=== PATIENT | male | born 1940 ===

== ENCOUNTER 2017-05-14 13:44 | Emergency (ER) | payer MEDICARE, SELFPAY ==
[2017-05-14 13:52] VITALS: RESP 20
[2017-05-14] MEDS ORDERED: Sodium Chloride 0.9% 1,000 ML IV STA (14:17)
[2017-05-14] MEDS ORDERED: Sodium Chloride 0.9% 1,000 ML ONE (14:26)
[2017-05-14 14:32] LABS: BASO # 0.1 K/uL (0.0-0.2); BASO % 1.3 % (0.0-2.0); EOS # 0.1 K/uL (0.0-0.7); EOS % 1.4 % (0.0-4.0); HEMATOCRIT 41.5 % (35.0-51.0); LYMPH # 0.9 K/uL (1.0-4.3); LYMPH % 8.8 % (20.0-40.0); MEAN CELL VOLUME 91.9 fL (80.0-94.0); MEAN CORPUSCULAR HEMOGLOBIN 31.2 pg (27.0-31.0); MEAN CORPUSCULAR HGB CONC 33.9 g/dL (33.0-37.0); MONO # 0.8 K/uL (0.0-0.8); MONO % 7.9 % (0.0-10.0); PLATELET COUNT 189 K/uL (130-400); RED CELL DISTRIBUTION WIDTH 14.6 % (11.5-14.5); WHITE BLOOD COUNT 10.6 K/uL (4.8-10.8)
--- NOTE | 2017-05-14 14:33 | C.PDOC ---
History Of Present Illness 77-year-old male, PMHx includes Hypertension, presents to the emergency department with complaints of an episode of dizziness, one hour ago while patient was waiting for a bus. Patient describes the episode as "feeling hot." States episode resolved, and he feels well currently. Denies nausea/vomiting, chest pain, palpitations, shortness of breath, fevers, headache, change in bowel habits, symptoms, or any other associated symptoms. No other complaints at this time PMD Dr Alejo. Time Seen by Provider: 05/14/17 14:06 Chief Complaint (Nursing): Dizziness/Lightheaded History Per: Patient History/Exam Limitations: no limitations Onset/Duration Of Symptoms: Other (Prior to arrival) Current Symptoms Are (Timing): Better Past Medical History Reviewed: Historical Data, Nursing Documentation, Vital Signs Vital Signs: Last Vital Signs Temp 97.2 F L 05/14/17 13:46 Pulse 68 05/14/17 13:46 Resp 20 05/14/17 13:46 BP 108/62 05/14/17 13:46 Pulse Ox 98 05/14/17 15:00 - Medical History PMH: COPD, HTN, Hypercholesterolemia, Kidney Stones, Chronic Kidney Disease - [facility] Procedures ULTRASONOGRAPHY OF PERICARDIUM (08/29/15) Family History: States: No Known Family Hx Other Family History: Non-contributory - Social History Hx Tobacco Use: Yes Hx Alcohol Use: No Hx Substance Use: No - Immunization History Hx Tetanus Toxoid Vaccination: No Hx Influenza Vaccination: No Hx Pneumococcal Vaccination: No Review Of Systems Except As Marked, All Systems Reviewed And Found Negative. Constitutional: Negative for: Fever, Chills Cardiovascular: Negative for: Chest Pain, Palpitations Respiratory: Negative for: Shortness of Breath Gastrointestinal: Negative for: Nausea, Vomiting, Abdominal Pain, Diarrhea Musculoskeletal: Negative for: Back Pain Neurological: Positive for: Dizziness. Negative for: Weakness, Numbness, Change in Speech, Headache Physical Exam - Physical Exam Additional Physical Exam Comments: Constitutional: No acute distress. Head: Normocephalic. Atraumatic. Eyes: PERRL. ENT: Moist mucous membranes. Neck: Supple. Cardiovascular: Regular rate. Radial pulses 2+ bilaterally. Chest: No tenderness. Respiratory: Clear to auscultation bilaterally. GI: Soft. Nontender. Nondistended. Back: No CVA tenderness. Musculoskeletal: No tenderness or swelling of extremities. Skin: No rashes. Neurologic: Alert, no focal deficit. ED Course And Treatment - Laboratory Results Result Diagrams: 05/14/17 14:26 05/14/17 14:26 ECG: Interpreted By Me, Viewed By Me ECG Rhythm: Sinus Rhythm ECG Interpretation: No Acute Changes Rate From EC O2 Sat by Pulse Oximetry: 98 (on RA) - Radiology CXR: Interpreted by Me, Viewed By Me CXR Interpretation: Yes: No Acute Disease Medical Decision Making Medical Decision Making: Orthostatic vital signs negative. Patient feels well and would not like to stay in the hospital although he was offered observation stay. I discussed case with PMRosio Alejo who states he can see patient in office Wednesday morning. Instructed to return to the ER immediately for any recurrent symptoms, pain, fever, dyspnea, bleeding/black stool, vomiting, or any other problem. Disposition - Disposition Referrals: Carmelo Alejo MD [Medical Doctor] - Disposition: HOME/ ROUTINE Disposition Time: 15:12 Condition: STABLE Instructions: Lightheadedness (ED) - Clinical Impression Clinical Impression: Lightheadedness - Scribe Statement The provider has reviewed the documentation as recorded by the Scribe (Serena Keller) All medical record entries made by the Scribe were at my direction and personally dictated by me. I have reviewed the chart and agree that the record accurately reflects my personal performance of the history, physical exam, medical decision making, and the department course for this patient. I have also personally directed, reviewed, and agree with the discharge instructions and disposition.
[2017-05-14 14:47] LABS: CHLORIDE 109 mmol/L (98-107)
[2017-05-14 14:48] LABS: POTASSIUM 3.6 mmol/L (3.6-5.2); SODIUM 140 mmol/L (132-148)
[2017-05-14 14:50] LABS: AST/SGOT 25 U/L (17-59); BILIRUBIN,TOTAL 0.6 mg/dL (0.2-1.3); CARBON DIOXIDE 22 mmol/L (22-30); GFR AFRICAN-AMERICAN > 60
[2017-05-14 14:51] LABS: ALB/GLOB RATIO 1.4 (1.0-2.1); ALKALINE PHOSPHATASE 59 U/L (38-126); ALT/SGPT 20 U/L (21-72); BLOOD UREA NITROGEN 29 mg/dL (9-20); CALCIUM 8.8 mg/dl (8.6-10.4); GLUCOSE,RANDOM 101 mg/dL (75-110); TOTAL PROTEIN 6.1 g/dL (6.3-8.3)
--- NOTE | 2017-05-14 14:51 | RAD ---
HISTORY: lightheadedness COMPARISON: 08/28/2015. FINDINGS: LUNGS: The lungs are well inflated and clear. PLEURA: No significant pleural effusion identified, no pneumothorax apparent. CARDIOVASCULAR: Normal. OSSEOUS STRUCTURES: No significant abnormalities. VISUALIZED UPPER ABDOMEN: Normal. OTHER FINDINGS: None. IMPRESSION: No active pulmonary disease.
[2017-05-14 15:10] LABS: EOSINOPHIL 4 % (0-4); NEUTROPHIL 82 % (50-75); TOTAL CELLS COUNTED 100
[2017-05-14 16:12] VITALS: BP 137/69; PULSE 69; TEMP 97.6; O2SAT 99
== END 2017-05-14 16:13 | disposition home or self-care (01) ==
LOC: C.ER 13:44
DX: R42 Dizziness and giddiness (principal)
CPT/HCPCS: 71010; 80053; 82550; 84484; 85025; 96360; 96361; 99285; J7040

== ENCOUNTER 2017-10-23 18:14 | Emergency (ER) | payer MEDICARE ==
--- NOTE | 2017-10-23 19:18 | C.PDOC ---
History Of Present Illness 77 year old male with a Hx of HTN and hyperlipidemia presents to the ER with a complaint of lower abdominal pain that began this morning. Patient states he took aspirin which resolved his symptoms, denies fever or other complaints. Time Seen by Provider: 10/23/17 19:04 Chief Complaint (Nursing): Abdominal Pain History Per: Patient History/Exam Limitations: no limitations Onset/Duration Of Symptoms: Hrs Current Symptoms Are (Timing): Still Present Location Of Pain/Discomfort: RUQ, LUQ Radiation Of Pain To:: None Quality Of Discomfort: Unable To Describe Associated Symptoms: denies: Fever, Chills, Nausea, Vomiting, Diarrhea Exacerbating Factors: None Alleviating Factors: None Recent travel outside of the [place]: No Past Medical History Reviewed: Historical Data, Nursing Documentation, Vital Signs Vital Signs: Last Vital Signs Temp 98.4 F 10/23/17 19:52 Pulse 64 10/23/17 19:52 Resp 16 10/23/17 19:52 BP 146/60 10/23/17 19:52 Pulse Ox 98 10/23/17 19:52 - Medical History PMH: COPD, HTN, Hypercholesterolemia, Kidney Stones, Chronic Kidney Disease Surgical History: No Surg Hx - [facility] Procedures ULTRASONOGRAPHY OF PERICARDIUM (08/29/15) Family History: States: Unknown Family Hx - Social History Hx Tobacco Use: Yes Hx Alcohol Use: No Hx Substance Use: No - Immunization History Hx Tetanus Toxoid Vaccination: No Hx Influenza Vaccination: No Hx Pneumococcal Vaccination: No Review Of Systems Constitutional: Negative for: Fever, Chills Gastrointestinal: Positive for: Abdominal Pain. Negative for: Nausea, Vomiting Physical Exam - Physical Exam Appears: Non-toxic, No Acute Distress Skin: Normal Color, Warm, Dry Head: Atraumatic, Normacephalic Eye(s): bilateral: Normal Inspection Oral Mucosa: Moist Neck: Normal, Supple Chest: Symmetrical Cardiovascular: Rhythm Regular Respiratory: Normal Breath Sounds, No Rales, No Rhonchi, No Wheezing Gastrointestinal/Abdominal: Soft, No Tenderness Neurological/Psych: Oriented x3, Normal Speech, Other (No focal deficits) ED Course And Treatment - Laboratory Results Result Diagrams: 10/23/17 19:14 10/23/17 19:14 Pulse Ox Interpretation: Normal Progress Note: Blood work and urinalysis ordered. Medical Decision Making Medical Decision Making: resolved abdominal pain - labs pending 740: pt reassessed: states all pain completely resolved in er. pt amenable to waiting for ua, but declines any futher imaging, and states "i want to go home" . 830: pt reassesed: abd soft nottp. pt states "he feels great". wishess to leave er. Disposition - Disposition Referrals: Soy Troncoso MD [Staff Provider] - Disposition: HOME/ ROUTINE Disposition Time: 19:38 Condition: STABLE Additional Instructions: please follow up with your doctor and specialist. return to er with worsening symptoms or concerns. Instructions: Acute Abdominal Pain (ED) Forms: [employer] (Bur[place]ian) - Clinical Impression Clinical Impression: Abdominal pain - Scribe Statement The provider has reviewed the documentation as recorded by the Scribe Juan Jose Castro All medical record entries made by the Scribe were at my direction and personally dictated by me. I have reviewed the chart and agree that the record accurately reflects my personal performance of the history, physical exam, medical decision making, and the department course for this patient. I have also personally directed, reviewed, and agree with the discharge instructions and disposition.
[2017-10-23 19:19] LABS: BASO # 0.1 K/uL (0.0-0.2); BASO % 1.1 % (0.0-2.0); EOS # 0.2 K/uL (0.0-0.7); EOS % 3.1 % (0.0-4.0); HEMATOCRIT 42.9 % (35.0-51.0); LYMPH # 1.7 K/uL (1.0-4.3); LYMPH % 23.2 % (20.0-40.0); MEAN CELL VOLUME 91.9 fL (80.0-94.0); MEAN CORPUSCULAR HEMOGLOBIN 30.5 pg (27.0-31.0); MEAN CORPUSCULAR HGB CONC 33.2 g/dL (33.0-37.0); MEAN PLATELET VOLUME 9.4 fL (7.2-11.7); MONO # 0.6 K/uL (0.0-0.8); MONO % 8.8 % (0.0-10.0); NRBC % 0.1 % (0.0-2.0); RED CELL DISTRIBUTION WIDTH 14.4 % (11.5-14.5); WHITE BLOOD COUNT 7.4 K/uL (4.8-10.8)
[2017-10-23 19:27] LABS: INR 0.9
[2017-10-23 19:35] LABS: BLOOD UREA NITROGEN 24 mg/dL (9-20); CALCIUM 8.5 mg/dl (8.6-10.4); CARBON DIOXIDE 26 mmol/L (22-30); CHLORIDE 103 mmol/L (98-107); GFR AFRICAN-AMERICAN > 60; GLUCOSE,RANDOM 90 mg/dL (75-110); POTASSIUM 3.4 mmol/L (3.6-5.2); SODIUM 137 mmol/L (132-148); TOTAL PROTEIN 7.2 g/dL (6.3-8.3)
[2017-10-23 19:36] LABS: ALB/GLOB RATIO 1.1 (1.0-2.1); ALKALINE PHOSPHATASE 82 U/L (38-126); ALT/SGPT 36 U/L (21-72); AST/SGOT 28 U/L (17-59); BILIRUBIN,TOTAL 0.6 mg/dL (0.2-1.3)
[2017-10-23] MEDS ORDERED: Potassium Chloride 20 mEq ER Tab PO STA (19:40)
[2017-10-23 20:03] VITALS: BP 146/60; PULSE 64; RESP 16; TEMP 98.4; O2SAT 98
[2017-10-23] MEDS ORDERED: Potassium Chloride 20 mEq ER Tab PO ONE ×2 (20:07→20:08)
[2017-10-23 20:17] LABS: RBC URINE 7 /hpf (0-3); URINE BILIRUBIN NEGATIVE (NEGATIVE); URINE BLOOD 2+ (NEGATIVE); URINE COLOR Straw (YELLOW); URINE GLUCOSE (UA) NORMAL (Normal); URINE KETONE NEGATIVE (NEGATIVE); URINE LEUKOCYTE ESTERASE NEG Leu/uL (Negative); URINE PROTEIN NEGATIVE (NEGATIVE); URINE UROBILINOGEN NORMAL mg/dL (0.2-1.0); WBC URINE 1 /hpf (0-5)
== END 2017-10-23 20:36 | disposition home or self-care (01) ==
LOC: C.ER 18:14
DX: R10.9 Unspecified abdominal pain (principal); I12.9 Hypertensive chronic kidney disease with stage 1 through stage 4 chronic kidney disease, or unspecified chronic kidney disease; N18.9 Chronic kidney disease, unspecified; F17.210 Nicotine dependence, cigarettes, uncomplicated

== ENCOUNTER 2018-03-21 08:56 | Inpatient (IN) | payer MEDICARE ==
[2018-03-21] MEDS ORDERED: Azithromycin 500 MG in Sodium Chloride 0.9% 250 ML IVPB STA (09:19)
[2018-03-21] MEDS ORDERED: Albuterol-Ipratrop 3 mg / 0.5 (3 ml) UD INH STA ×2 (09:19→09:58)
[2018-03-21] MEDS ORDERED: Albuterol-Ipratrop 3 mg / 0.5 (3 ml) UD ONE ×2 (09:32→10:46)
[2018-03-21 09:37] LABS: BASO # 0.1 K/uL (0.0-0.2); BASO % 0.3 % (0.0-2.0); HEMOGLOBIN 14.2 g/dL (12.0-18.0); LYMPH # 0.4 K/uL (1.0-4.3); LYMPH % 2.4 % (20.0-40.0); MEAN CELL VOLUME 90.8 fL (80.0-94.0); MEAN CORPUSCULAR HGB CONC 34.1 g/dL (33.0-37.0); MEAN PLATELET VOLUME 9.3 fL (7.2-11.7); MONO # 1.8 K/uL (0.0-0.8); MONO % 10.6 % (0.0-10.0); NEUT # 14.7 K/uL (1.8-7.0); NEUT % 86.7 % (50.0-75.0); PLATELET COUNT 299 K/uL (130-400); RBC 4.58 Mil/uL (4.40-5.90); RED CELL DISTRIBUTION WIDTH 13.7 % (11.5-14.5); WHITE BLOOD COUNT 16.9 K/uL (4.8-10.8)
--- NOTE | 2018-03-21 09:47 | RAD ---
Chest x-ray single frontal view History: Shortness of breath. Comparison: 05/14/2017 Findings: Biapical pleural thickening with upper lobe granulomatous changes. Diffuse increased interstitial lung markings which may represent underlying edema and or infiltrate. Right hilar prominence. Bibasilar breast and nipple shadows. Mild cardiomegaly. Degenerative changes in the spine and shoulders. Impression: Biapical pleural thickening with upper lobe granulomatous changes. Diffuse increased interstitial lung markings which may represent underlying edema and or infiltrate. Right hilar prominence. Bibasilar breast and nipple shadows. Mild cardiomegaly.
[2018-03-21 09:50] LABS: ALB/GLOB RATIO 0.9 (1.0-2.1); ALBUMIN 3.5 g/dL (3.5-5.0); ALT/SGPT 38 U/L (21-72); AST/SGOT 46 U/L (17-59); BLOOD UREA NITROGEN 33 mg/dL (9-20); GFR AFRICAN-AMERICAN > 60; GFR NON-AFRICAN AMERICAN > 60
[2018-03-21 09:55] LABS: B-TYPE NATRIURETIC PEPTIDE 3160 pg/mL (0-900)
--- NOTE | 2018-03-21 10:03 | C.PDOC ---
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 Patient is not on any home O2. Denies vomiting, fever. All other Hx limited because patient is a poor historian. Time Seen by Provider: 03/21/18 09:08 Chief Complaint (Nursing): Shortness Of Breath History Per: Family History/Exam Limitations: clinical condition Onset/Duration Of Symptoms: Days Current Symptoms Are (Timing): Still Present Past Medical History Reviewed: Historical Data, Nursing Documentation, Vital Signs Vital Signs: Last Vital Signs Temp 97.8 F 03/21/18 15:00 Pulse 98 H 03/21/18 16:32 Resp 20 03/21/18 15:00 BP 166/82 H 03/21/18 15:00 Pulse Ox 95 03/21/18 15:00 - Medical History PMH: COPD, HTN, Hypercholesterolemia, Kidney Stones, Chronic Kidney Disease - [facility] Procedures ULTRASONOGRAPHY OF PERICARDIUM (08/29/15) Family History: States: No Known Family Hx - Social History Hx Tobacco Use: Yes Hx Alcohol Use: No Hx Substance Use: No - Immunization History Hx Tetanus Toxoid Vaccination: No Hx Influenza Vaccination: No Hx Pneumococcal Vaccination: No Review Of Systems Review Of Systems: ROS cannot be obtained secondary to pt's inabilty to answer questions. Constitutional: Negative for: Fever Respiratory: Positive for: Cough, Shortness of Breath Gastrointestinal: Negative for: Vomiting Physical Exam - Physical Exam Appears: Non-toxic, In Acute Distress Skin: Normal Color, Warm, Dry, No Rash Head: Normacephalic Eye(s): bilateral: PERRL Nose: Normal Oral Mucosa: Moist Lips: Normal Appearing Neck: Normal ROM Chest: Symmetrical Cardiovascular: Rhythm Regular, No Murmur Respiratory: No Accessory Muscle Use, Other (diminished bs bilaterally ) Gastrointestinal/Abdominal: Normal Exam, Bowel Sounds, Soft Back: Normal Inspection Extremity: Normal ROM, No Deformity, No Swelling Neurological/Psych: Oriented x3, Normal Speech ED Course And Treatment - Laboratory Results Result Diagrams: 03/21/18 09:26 03/21/18 09:26 ECG: Interpreted By Me, Viewed By Me ECG Rhythm: Sinus Rhythm ECG Interpretation: No Acute Changes Interpretation Of ECG: PAC, left axis deviation. non-specific changes Rate From EC O2 Sat by Pulse Oximetry: 83 (RA) Pulse Ox Interpretation: Abnormal Critical Care Time - Critical Care Note Total Time (in mins): 40 Documented critical care: time excludes all time spent performing seperately billable procedures. Medical Decision Making Medical Decision Making: Plan: * EKG * Bloodwork * Duonebs, Lasix, Rocephin, Solumedrol, Azithro * Blood/Urine cultures * bipap, peak flow * UA * Reassess and Disposition Disposition Discussed With : Joe Soria Counseled Patient/Family Regarding: Studies Performed, Diagnosis - Disposition Disposition: HOSPITALIZED Disposition Time: 10:03 Condition: FAIR - Clinical Impression Clinical Impression: Chr obstructive pulmonary disease w/ acute lower respiratory infxn - Scribe Statement The provider has reviewed the documentation as recorded by the Scribe (Serena Joseph) All medical record entries made by the Scribe were at my direction and personally dictated by me. I have reviewed the chart and agree that the record accurately reflects my personal performance of the history, physical exam, medical decision making, and the department course for this patient. I have also personally directed, reviewed, and agree with the discharge instructions and disposition.
[2018-03-21 10:54] LABS: SQUAMOUS EPITHIAL < 1 /hpf (0-5); URINE AMORPHOUS SEDIMENT FEW /ul (<OCC); URINE BILIRUBIN NEGATIVE (NEGATIVE); URINE BLOOD 3+ (NEGATIVE); URINE CLARITY Hazy (Clear); URINE COLOR Amber (YELLOW); URINE GLUCOSE (UA) NORMAL (Normal); URINE LEUKOCYTE ESTERASE NEG Leu/uL (Negative); URINE PROTEIN 2+ mg/dL (NEGATIVE)
[2018-03-21 10:57] LABS: BANDS 7 % (0-2); LYMPHOCYTE 4 % (20-40); MONOCYTE 2 % (0-10); NEUTROPHIL 87 % (50-75); NUCLEATED RED BLOOD CELL 1 % (0-0); TOTAL CELLS COUNTED 100
[2018-03-21 11:01] LABS: PLATELET ESTIMATE NORMAL (NORMAL)
[2018-03-21 11:02] LABS: TOXIC GRANULATION PRESENT
[2018-03-21] MEDS: Albuterol-Ipratrop 3 mg / 0.5 (3 ml) UD INH SCH ×2 (13:48→20:35)
[2018-03-21] MEDS ORDERED: Potassium Chloride 20 mEq ER Tab PO ONE (14:11)
[2018-03-21] MEDS: guaiFENesin 600 mg ER Tab PO SCH (18:01)
[2018-03-21 21:05] LABS: ARTERIAL BLOOD GAS HCO3 28.8 mmol/L (21-28); ARTERIAL BLOOD GAS HEMOGLOBIN 13.7 g/dL (11.7-17.4); ARTERIAL BLOOD GAS O2 SAT 98.6 % (95-98); ARTERIAL BLOOD GAS PCO2 47 mm/Hg (35-45); ARTERIAL BLOOD GAS PH 7.42 (7.35-7.45); ARTERIAL BLOOD GAS PO2 84 mm/Hg (80-100); ARTERIAL BLOOD GAS TCO2 31.9 mmol/L (22-28)
[2018-03-21] MEDS: MethylPREDNISolone 40 mg Vial IVP SCH (21:39)
[2018-03-21] MEDS: Rosuvastatin Calcium 2.5 mg Tab PO SCH (22:15)
--- NOTE | 2018-03-21 23:19 | CP.PCM.HP ---
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 Patient is not on any home O2. Denies vomiting, fever. All other Hx limited because patient is a poor historian. Past Patient History - Past Medical History & Family History Past Medical History?: Yes - Past Social History Smoking Status: Former Smoker - CARDIAC Hx Hypercholesterolemia: Yes Hx Hypertension: Yes - PULMONARY Hx Chronic Obstructive Pulmonary Disease (COPD): Yes - NEUROLOGICAL Hx Neurological Disorder: No - HEENT Hx HEENT Problems: No - RENAL Hx Chronic Kidney Disease: Yes Hx Kidney Stones: Yes - ENDOCRINE/METABOLIC Hx Endocrine Disorders: No - HEMATOLOGICAL/ONCOLOGICAL Hx Blood Disorders: No - INTEGUMENTARY Hx Dermatological Problems: No - MUSCULOSKELETAL/RHEUMATOLOGICAL Hx Musculoskeletal Disorders: No Hx Falls: Yes - GASTROINTESTINAL Hx Gastrointestinal Disorders: No - GENITOURINARY/GYNECOLOGICAL Hx Genitourinary Disorders: No - PSYCHIATRIC Hx Substance Use: No - SURGICAL HISTORY Hx Surgeries: No - ANESTHESIA Hx Anesthesia: No Hx Anesthesia Reactions: No (unknown) Hx Malignant Hyperthermia: No Meds Allergies/Adverse Reactions: Allergies Allergy/AdvReac Type Severity Reaction Status Date / Time No Known Allergies Allergy Verified 08/28/15 12:26 Results - Vital Signs Recent Vital Signs: Last Vital Signs Temp 97.8 F 03/21/18 15:00 Pulse 72 03/21/18 20:49 Resp 20 03/21/18 15:00 BP 114/64 03/21/18 19:19 Pulse Ox 91 L 03/21/18 20:39 - Labs Result Diagrams: 03/21/18 09:26 03/21/18 09:26 Labs: Laboratory Results - last 24 hr 03/21/18 03/21/18 03/21/18 09:11 09:26 09:26 WBC 16.9 H D RBC 4.58 Hgb 14.2 Hct 41.6 MCV 90.8 MCH 31.0 MCHC 34.1 RDW 13.7 Plt Count 299 D MPV 9.3 Neut % (Auto) 86.7 H Lymph % (Auto) 2.4 L [place] % (Auto) 10.6 H Eos % (Auto) 0.0 Baso % (Auto) 0.3 Neut # (Auto) 14.7 H Lymph # (Auto) 0.4 L [place] # (Auto) 1.8 H Eos # (Auto) 0.0 Baso # (Auto) 0.1 Neutrophils % (Manual) 87 H Band Neutrophils % 7 H Lymphocytes % (Manual) 4 L Monocytes % (Manual) 2 Nucleated RBC % 1 H Toxic Granulation Present Platelet Estimate Normal RBC Morphology Normal Puncture Site pCO2 pO2 HCO3 ABG pH ABG Total CO2 ABG O2 Saturation ABG Base Excess ABG Hemoglobin ABG Carboxyhemoglobin POC ABG HHb (Measured) ABG Methemoglobin Kodak Test A-a O2 Difference Respiratory Index Hgb O2 Saturation Vent Mode Mechanical Rate FiO2 Inspiratory BiPAP Expiratory BiPAP Sodium 143 Potassium 3.4 L Chloride 99 Carbon Dioxide 30 Anion Gap 17 BUN 33 H Creatinine 1.0 Est GFR ( Amer) > 60 Est GFR (Non-Af Amer) > 60 POC Glucose (mg/dL) 126 H Random Glucose 137 H Calcium 9.0 Total Bilirubin 1.5 H AST 46 ALT 38 Alkaline Phosphatase 104 Troponin I 0.0460 NT-Pro-B Natriuret Pep 3160 H Total Protein 7.6 Albumin 3.5 Globulin 4.1 H Albumin/Globulin Ratio 0.9 L Urine Color Urine Clarity Urine pH Ur Specific [place] Urine Protein Urine Glucose (UA) Urine Ketones Urine Blood Urine Nitrate Urine Bilirubin Urine Urobilinogen Ur Leukocyte Esterase Urine WBC (Auto) Urine RBC (Auto) Ur Squamous Epith Cells Amorphous Sediment 03/21/18 03/21/18 10:38 21:00 WBC RBC Hgb Hct MCV MCH MCHC RDW Plt Count MPV Neut % (Auto) Lymph % (Auto) [place] % (Auto) Eos % (Auto) Baso % (Auto) Neut # (Auto) Lymph # (Auto) [place] # (Auto) Eos # (Auto) Baso # (Auto) Neutrophils % (Manual) Band Neutrophils % Lymphocytes % (Manual) Monocytes % (Manual) Nucleated RBC % Toxic Granulation Platelet Estimate RBC Morphology Puncture Site Rba pCO2 47 H pO2 84 HCO3 28.8 H ABG pH 7.42 ABG Total CO2 31.9 H ABG O2 Saturation 98.6 H ABG Base Excess 5.0 H ABG Hemoglobin 13.7 ABG Carboxyhemoglobin 2.0 H POC ABG HHb (Measured) 1.4 ABG Methemoglobin 1.3 Kodak Test Na A-a O2 Difference 142.0 Respiratory Index 1.7 Hgb O2 Saturation 95.2 Vent Mode Bipap Mechanical Rate 15 FiO2 40.0 Inspiratory BiPAP 14 Expiratory BiPAP 7 Sodium Potassium Chloride Carbon Dioxide Anion Gap BUN Creatinine Est GFR ( Amer) Est GFR (Non-Af Amer) POC Glucose (mg/dL) Random Glucose Calcium Total Bilirubin AST ALT Alkaline Phosphatase Troponin I NT-Pro-B Natriuret Pep Total Protein Albumin Globulin Albumin/Globulin Ratio Urine Color Denisa Urine Clarity Hazy Urine pH 5.0 Ur Specific [place] 1.020 Urine Protein 2+ H Urine Glucose (UA) Normal Urine Ketones Negative Urine Blood 3+ H Urine Nitrate Negative Urine Bilirubin Negative Urine Urobilinogen 4.0 Ur Leukocyte Esterase Neg Urine WBC (Auto) 3 Urine RBC (Auto) 24 H Ur Squamous Epith Cells < 1 Amorphous Sediment Few H
[2018-03-22] MEDS: Albuterol-Ipratrop 3 mg / 0.5 (3 ml) UD INH SCH ×4 (01:44→20:29)
[2018-03-22 08:06] LABS: HEMOGLOBIN 13.3 g/dL (12.0-18.0); MEAN CELL VOLUME 91.4 fL (80.0-94.0); MEAN CORPUSCULAR HEMOGLOBIN 30.6 pg (27.0-31.0); MEAN CORPUSCULAR HGB CONC 33.5 g/dL (33.0-37.0); MEAN PLATELET VOLUME 9.6 fL (7.2-11.7); RBC 4.36 Mil/uL (4.40-5.90); RED CELL DISTRIBUTION WIDTH 14.1 % (11.5-14.5); WHITE BLOOD COUNT 20.1 K/uL (4.8-10.8)
[2018-03-22 08:22] LABS: BLOOD UREA NITROGEN 55 mg/dL (9-20); CALCIUM 8.9 mg/dl (8.6-10.4); GFR AFRICAN-AMERICAN > 60; GFR NON-AFRICAN AMERICAN > 60
[2018-03-22] MEDS: MethylPREDNISolone 40 mg Vial IVP SCH ×2 (09:48→21:02)
[2018-03-22] MEDS: guaiFENesin 600 mg ER Tab PO SCH ×2 (09:48→17:08)
[2018-03-22] MEDS: Enoxaparin 40 mg Syringe SC SCH (09:49)
[2018-03-22] MEDS ORDERED: Tuberculin 5 Units/0.1 ml Inj ID ONE (11:00)
[2018-03-22] MEDS: Piperacillin/Tazobact 3.375 GM in Sodium Chloride 100 ML IVPB SCH ×2 (13:03→19:02)
--- NOTE | 2018-03-22 15:41 | CT ---
PROCEDURE: CT Chest without contrast HISTORY: interstitial pnrumonitis COMPARISON: None. TECHNIQUE: Contiguous axial images were obtained through the chest without intravenous contrast enhancement. Sagittal and coronal reconstructions were performed. Radiation dose (DLP): 303.40 mGy-cm. This CT exam was performed using one or more of the following dose reduction techniques: Automated exposure control, adjustment of the mA and/or kV according to patient size, and/or use of iterative reconstruction technique. FINDINGS: LUNGS: Bilateral diffuse reticulonodular changes are identified with mild peribronchial cuffing of the major airways. Trace alveolitis is seen in the right upper and bilateral lower lobes the lower lobe atelectasis may be present rather than alveolitis. No central airway mass. The reticular pattern may obscure underlying small nodules. MEDIASTINUM: Unremarkable thoracic aorta. No aneurysm. Normal sized heart. Main pulmonary artery unremarkable. No vascular congestion. No significant lymphadenopathy. PLEURA: No pleural fluid. No pneumothorax. BONES: No fracture. No destructive lesion. UPPER ABDOMEN: Incidental right and left lobe lucencies are infrequently identified too small to characterize. Bilateral renal lucencies are identified suggestive of cysts with 1 too small to characterize at the left kidney. OTHER FINDINGS: None. IMPRESSION: Diffuse mild reticulonodular infiltrates in trace peribronchial thickening are appreciated throughout all lobes bilaterally which trace alveolitis in the right upper lobe and potentially at minimally affecting bilateral lower lobes though atelectasis is a the possibility there. No significant lymphadenopathy. No significant lymphadenopathy. Consider infectious or inflammatory process. Neoplasm not favored. Incidental abdominal findings as described above.
[2018-03-22] MEDS: Dextrose 5%/0.45% NS 1,000 ML IV SCH (18:58)
[2018-03-22] MEDS: Rosuvastatin Calcium 2.5 mg Tab PO SCH (21:02)
--- NOTE | 2018-03-22 21:57 | CARD ---
APPROVED REPORT EKG Measurement Heart [id number] [id number] <Conclusion> Sinus rhythm with premature atrial complexes Left axis deviation Abnormal ECG
[2018-03-22] MEDS: Nitroglycerin 2% Ointment Foilpak UD TOP SCH (22:17)
--- NOTE | 2018-03-22 23:33 | CP.PCM.PN ---
Subjective - Date & Time of Evaluation Date of Evaluation: 03/22/18 Time of Evaluation: 17:45 - Subjective Subjective: Pt seen and examined at bedside Objective - Vital Signs/Intake and Output Vital Signs (last 24 hours): Temp Pulse Resp BP Pulse Ox 97.5 F L 77 18 159/83 H 98 03/22/18 15:00 03/22/18 19:57 03/22/18 15:00 03/22/18 22:00 03/22/18 15:00 Intake and Output: 03/22/18 03/23/18 18:59 06:59 Intake Total 300 Balance 300 - Medications Medications: Current Medications Albuterol/Ipratropium (Duoneb 3 Mg/0.5 Mg (3 Ml) Ud) 3 ml INH RQ6 [facility] Last Admin: 03/22/18 20:29 Dose: 3 ml Enoxaparin Sodium (Lovenox) 40 mg SC DAILY [facility] Last Admin: 03/22/18 09:49 Dose: 40 mg Guaifenesin (Mucinex La) 600 mg PO BID [facility] Last Admin: 03/22/18 17:08 Dose: 600 mg Piperacillin Sod/Tazobactam (Sod 3.375 gm/ Sodium Chloride) 100 mls @ 200 mls/ hr IVPB Q8H [facility] PRN Reason: Protocol Stop: 03/29/18 04:29 Last Admin: 03/22/18 19:02 Dose: 200 mls/hr Dextrose/Sodium Chloride (Dextrose 5%/0.45% Ns 1000 Ml) 1,000 mls @ 40 mls/hr IV .Q24H [facility] Last Admin: 03/22/18 18:58 Dose: 40 mls/hr Methylprednisolone (Solu-Medrol) 20 mg IVP Q12 [facility] Last Admin: 03/22/18 21:02 Dose: 20 mg Nitroglycerin (Nitro-Bid 2% Oint) 0 ea TOP Q6H [facility] Last Admin: 03/22/18 22:17 Dose: 1 ea Rosuvastatin Calcium (Crestor) 2.5 mg PO HS [facility] Last Admin: 03/22/18 21:02 Dose: 2.5 mg - Labs Labs: 03/22/18 07:56 03/22/18 07:56
[2018-03-23] MEDS: Albuterol-Ipratrop 3 mg / 0.5 (3 ml) UD INH SCH ×3 (01:41→19:45)
[2018-03-23] MEDS: Piperacillin/Tazobact 3.375 GM in Sodium Chloride 100 ML IVPB SCH ×3 (05:02→21:00)
[2018-03-23] MEDS: Nitroglycerin 2% Ointment Foilpak UD TOP SCH ×4 (05:03→22:47)
--- NOTE | 2018-03-23 06:29 | CON ---
DATE: HISTORY OF PRESENT ILLNESS: This is a 77-year old male, an ex-smoker with history of COPD, hypercholesterolemia, renal stone, chronic renal disease,degenerative arthritis, history of falls, now admitted with cough productive of mucoid and yellowish sputum and history of shortness of breath with no chest pain and no vomiting, no fever. There is no hemoptysis. PAST HISTORY: As stated above COPD, hypertension, hypercholesterolemia, renal disease. SOCIAL HISTORY: He has been a smoker in the past for many years, but he is unable to say how many because he says he gets confused.. Does not drink alcohol. There is no history of allergy. There is no history of tuberculosis or PPD test. FAMILY HISTORY: Reported as unremarkable and there is no history of TB. REVIEW OF SYSTEMS: As reported above. NEUROLOGIC: There is no history of seizures, but has history of falls and periods of confusion. CARDIORESPIRATORY: There is history of shortness of breath with cough. GASTROINTESTINAL: Unremarkable. No vomiting. No abdominal pain. No diarrhea. His weight is steady but may have weight loss. There is no loss of appetite. RENAL: Unremarkable except for history of renal stones. MUSCULOSKELETAL: He has history of arthritis. Does not give history of . GENERAL: No history of substance abuse. PHYSICAL EXAMINATION: GENERAL: He is awake, words conversation, but he is somewhat confused. VITAL SIGNS: He is afebrile with blood pressure 146/68, pulse 66, respirations 18, hemoglobin oxygen saturation of 97%. He uses BiPAP at night. NECK: Supple. There is no lymphadenopathy. HEENT: Unremarkable. There is no thyromegaly. HEART: Regular. No gallop rhythm. LUNGS: Diminished breath sounds of the lung bases. There are some crackles bilaterally with rhonchi. ABDOMEN: Soft. EXTREMITIES: No edema. No calf muscle tenderness. Deep tendon reflexes are unremarkable. There is general motor weakness. LABORATORY DATA: Laboratory studies show white count 20,100, hemoglobin 13.3, platelet count 319,000, MCV 91, MCHC 33.5, neutrophils 87%, basos 7, lymph of 4. ABG is on 40% of FiO2, BiPAP of 14 x 7 showed pH of 7.42, pCO2 47, pO2 34, bicarb 29, hemoglobin oxygen saturation of 95%. Serum sodium 145, potassium 3.9, chloride 103, BUN 55, creatinine 1.1, glucose 173, calcium 8.9. Total bilirubin 1.5, AST 46, ALT 38, alkaline phosphatase 24, troponin 0.046, proBNP raised to 3160, albumin 3.5, globulin 4.1. Urine shows protein 2+, blood 3+, urobilinogen 4, urine leukocyte esterase negative, white count 3, urine rbc 24. Chest x-ray shows cardiomegaly. Diffuse interstitial marking reported as decreased interstitial marking which may represent underlying edema or infiltrates. with right hilar prominence with pleural thickening and upper lobe granulomatous changes. IMPRESSION: Respiratory insufficiency, history of chronic obstructive pulmonary disease, pneumonitis, interstitial lung disease, degenerative joint disease, hypertension, history of falls, history of chronic renal disorder and renal stones, hypercholesterolemia and anemia. PLAN: To continue with the current medications, I agree with current plan and recommend oxygen, bronchodilator, vasodilators, antibiotics and further testing as ordered. We will discuss. Saji Ortega MD
[2018-03-23 06:57] LABS: ALB/GLOB RATIO 0.8 (1.0-2.1); ALBUMIN 2.9 g/dL (3.5-5.0); ALT/SGPT 41 U/L (21-72); AST/SGOT 43 U/L (17-59); BLOOD UREA NITROGEN 51 mg/dL (9-20); CALCIUM 8.2 mg/dl (8.6-10.4); GFR AFRICAN-AMERICAN > 60; GFR NON-AFRICAN AMERICAN > 60
[2018-03-23] MEDS: guaiFENesin 600 mg ER Tab PO SCH ×2 (10:36→17:47)
[2018-03-23] MEDS: Enoxaparin 40 mg Syringe SC SCH (10:36)
[2018-03-23] MEDS: MethylPREDNISolone 40 mg Vial IVP SCH ×2 (10:37→22:46)
[2018-03-23] MEDS: Potassium Chloride 10 mEq ER Tab PO SCH (13:02)
[2018-03-23] MEDS: Dextrose 5%/0.45% NS 1,000 ML IV SCH (18:00)
[2018-03-23] MEDS ORDERED: Potassium Chloride 20 mEq ER Tab PO STA (19:46)
[2018-03-23] MEDS: Rosuvastatin Calcium 2.5 mg Tab PO SCH (22:46)
[2018-03-23 22:59] LABS: URINE BACTERIA RARE (<OCC); URINE BILIRUBIN NEGATIVE (NEGATIVE); URINE BLOOD 2+ (NEGATIVE); URINE CLARITY Clear (Clear); URINE COLOR Yellow (YELLOW); URINE GLUCOSE (UA) NORMAL (Normal); URINE LEUKOCYTE ESTERASE NEG Leu/uL (Negative); URINE PROTEIN 1+ mg/dL (NEGATIVE); URINE UROBILINOGEN NORMAL mg/dL (0.2-1.0)
--- NOTE | 2018-03-24 00:11 | CP.PCM.PN ---
Subjective - Date & Time of Evaluation Date of Evaluation: 03/23/18 Time of Evaluation: 18:00 - Subjective Subjective: Pt seen and examined Objective - Vital Signs/Intake and Output Vital Signs (last 24 hours): Temp Pulse Resp BP Pulse Ox 97.9 F 71 20 160/65 H 97 03/23/18 23:55 03/23/18 23:55 03/23/18 23:55 03/23/18 23:55 03/23/18 23:55 - Medications Medications: Current Medications Albuterol/Ipratropium (Duoneb 3 Mg/0.5 Mg (3 Ml) Ud) 3 ml INH RQ6 [facility] Last Admin: 03/23/18 19:45 Dose: 3 ml Enoxaparin Sodium (Lovenox) 40 mg SC DAILY [facility] Last Admin: 03/23/18 10:36 Dose: 40 mg Guaifenesin (Mucinex La) 600 mg PO BID [facility] Last Admin: 03/23/18 17:47 Dose: 600 mg Piperacillin Sod/Tazobactam (Sod 3.375 gm/ Sodium Chloride) 100 mls @ 200 mls/ hr IVPB Q8H [facility] 234 [facility]S AT [facility] PRN Reason: Protocol Stop: 03/29/18 04:29 Last Admin: 03/23/18 21:00 Dose: 200 mls/hr Dextrose/Sodium Chloride (Dextrose 5%/0.45% Ns 1000 Ml) 1,000 mls @ 40 mls/hr IV .Q24H [facility] 234 B[facility]S AT [facility] Last Admin: 03/23/18 18:00 Dose: 40 mls/hr Methylprednisolone (Solu-Medrol) 20 mg IVP Q12 [facility] 234 B[facility]S AT [facility] Last Admin: 03/23/18 22:46 Dose: 20 mg Nitroglycerin (Nitro-Bid 2% Oint) 0 ea TOP Q6H [facility] 234 BEDS AT [facility] Last Admin: 03/23/18 22:47 Dose: 1 ea Potassium Chloride (Klor-Con 10) 10 meq PO DAILY [facility] 234 B[facility]S AT [facility] Last Admin: 03/23/18 13:02 Dose: 10 meq Rosuvastatin Calcium (Crestor) 2.5 mg PO HS [facility] 234 BEDS AT [facility] Last Admin: 03/23/18 22:46 Dose: 2.5 mg - Labs Labs: 03/22/18 07:56 03/23/18 06:36
[2018-03-24] MEDS: Albuterol-Ipratrop 3 mg / 0.5 (3 ml) UD INH SCH ×4 (01:21→19:20)
[2018-03-24] MEDS: Nitroglycerin 2% Ointment Foilpak UD TOP SCH ×4 (04:00→22:15)
[2018-03-24] MEDS: Piperacillin/Tazobact 3.375 GM in Sodium Chloride 100 ML IVPB SCH ×3 (05:00→20:17)
[2018-03-24 07:27] LABS: BASO % 0.2 % (0.0-2.0); HEMOGLOBIN 13.2 g/dL (12.0-18.0); LYMPH # 0.3 K/uL (1.0-4.3); LYMPH % 1.5 % (20.0-40.0); MEAN CELL VOLUME 91.4 fL (80.0-94.0); MEAN CORPUSCULAR HEMOGLOBIN 30.4 pg (27.0-31.0); MEAN CORPUSCULAR HGB CONC 33.3 g/dL (33.0-37.0); MEAN PLATELET VOLUME 9.7 fL (7.2-11.7); MONO # 0.7 K/uL (0.0-0.8); MONO % 3.8 % (0.0-10.0); NEUT # 17.6 K/uL (1.8-7.0); NEUT % 94.5 % (50.0-75.0); NRBC % 0.1 % (0.0-2.0); PLATELET COUNT 281 K/uL (130-400); RBC 4.35 Mil/uL (4.40-5.90); RED CELL DISTRIBUTION WIDTH 13.8 % (11.5-14.5); WHITE BLOOD COUNT 18.6 K/uL (4.8-10.8)
--- NOTE | 2018-03-24 07:47 | PN ---
DATE: 03/23/2018 SUBJECTIVE: The patient is in bed, on oxygen with hemoglobin-oxygen saturation of 97%. PHYSICAL EXAMINATION: GENERAL: He is awake. He is not in acute distress. VITAL SIGNS: Afebrile. His blood pressure is 134/68, pulse 66, and respirations 24. HEART: His heart is regular. No gallop rhythm. LUNGS: Diminished breath sounds over the lung bases. Rhonchi diminished. ABDOMEN: Soft. EXTREMITIES: Legs, no edema. LABORATORY DATA: Serum sodium is 146, serum potassium is 3.4, BUN is 51, and creatinine 1.1. Blood sugar 176, total protein 6.3, and albumin 2.9. Chest CT showed bilateral diffuse reticular nodular changes and mild recurrent cough was reported to have in the lower lobes and the area of the right upper lobe. No mass was noted. No pleural fluid was reported. The patient is currently on antibiotics, bronchodilators, and steroids and having cardiologic workup, respiratory insufficiency, saturation on CO2, interstitial lung disease, history of falls, history of chronic renal disease, history of renal stones, degenerative arthritis, periods of confusion, and pneumonitis. Workup is in progress. Calcium supplement has been ordered. His dehydration is being treated and he is gradually following routine electrophoresis results. metabolic panel followup . Continue with her current medical management. Saji Ortega MD
[2018-03-24 08:49] LABS: IRON 49 ug/dL (49-181)
[2018-03-24 08:59] LABS: % IRON SATURATION 23 (20-55); TOTAL IRON BINDING CAPACITY 215 ug/dL (250-450)
[2018-03-24] MEDS: MethylPREDNISolone 40 mg Vial IVP SCH ×2 (10:06→22:17)
[2018-03-24] MEDS: Enoxaparin 40 mg Syringe SC SCH (10:06)
[2018-03-24] MEDS: guaiFENesin 600 mg ER Tab PO SCH ×2 (10:07→19:03)
[2018-03-24] MEDS: Potassium Chloride 10 mEq ER Tab PO SCH (10:07)
[2018-03-24 10:17] LABS: BLOOD UREA NITROGEN 34 mg/dL (9-20); CALCIUM 8.5 mg/dl (8.6-10.4); GFR AFRICAN-AMERICAN > 60; GFR NON-AFRICAN AMERICAN > 60
[2018-03-24 10:42] LABS: BANDS 5 % (0-2); LYMPHOCYTE 1 % (20-40); MONOCYTE 4 % (0-10); MYELOCYTE 1 % (0-0); NEUTROPHIL 89 % (50-75); TOTAL CELLS COUNTED 100
[2018-03-24 10:43] LABS: PLATELET ESTIMATE NORMAL (NORMAL)
--- NOTE | 2018-03-24 13:27 | RAD ---
HISTORY: pneumonitis COMPARISON: 03/21/2018 FINDINGS: LUNGS: No active pulmonary disease. PLEURA: No significant pleural effusion identified, no pneumothorax apparent. CARDIOVASCULAR: Normal. OSSEOUS STRUCTURES: No significant abnormalities. VISUALIZED UPPER ABDOMEN: Normal. OTHER FINDINGS: None. IMPRESSION: No active disease.
[2018-03-24 14:32] LABS: ABG ALLEN TEST POS; ARTERIAL BLOOD GAS HCO3 29.6 mmol/L (21-28); ARTERIAL BLOOD GAS HEMOGLOBIN 15.5 g/dL (11.7-17.4); ARTERIAL BLOOD GAS O2 SAT 97.7 % (95-98); ARTERIAL BLOOD GAS PCO2 38 mm/Hg (35-45); ARTERIAL BLOOD GAS PO2 77 mm/Hg (80-100); ARTERIAL BLOOD GAS TCO2 30.8 mmol/L (22-28)
--- NOTE | 2018-03-24 15:31 | PN ---
DATE: 03/24/2018 SUBJECTIVE: The patient is awake, he is in bed, his family is at bedside. The patient is not in distress. He is afebrile and has periods of confusion and agitation and had to be given Ativan once earlier. PHYSICAL EXAMINATION: VITAL SIGNS: His blood pressure is 174/80, pulse 90, respirations 20, hemoglobin-oxygen saturation is 100%. HEART: Regular. There is no regular rhythm. LUNGS: Diminished breath sounds over the lung bases. No rhonchi at the moment. ABDOMEN: Soft. EXTREMITIES: Legs, no edema. LABORATORY DATA: His white count today is 18,600, hemoglobin 13.2, MCHC 33.3, platelet 281,000, neutrophils 94, lymphs 1.5, neutrophils on annual count is 89. Serum sodium is 148, potassium 4.4, BUN 34, creatinine 0.9, glucose is 163. Blood cultures after 48 hours did not show any growth. are pending. Other lab results, . IMPRESSION: Respiratory insufficiency, exacerbation of chronic obstructive pulmonary disease, interstitial lung disease, degenerative joint disease, hypertension, chronic renal impairment, history of falls, and dementia. PLAN: To continue the current management. We will follow up the test results. Continue with antibiotics, bronchodilators, vasodilators, and oxygen therapy. Saji Ortega MD
[2018-03-24 18:42] LABS: ALBUMIN (PEP) 2.2 g/dL (3.8-4.8); ALPHA-1-GLOBULIN (PEP) 0.6 g/dL (0.2-0.3)
[2018-03-24] MEDS: Dextrose 5%/0.45% NS 1,000 ML IV SCH (20:17)
[2018-03-24] MEDS: Rosuvastatin Calcium 2.5 mg Tab PO SCH (22:15)
--- NOTE | 2018-03-24 23:57 | CP.PCM.PN ---
Objective - Vital Signs/Intake and Output Vital Signs (last 24 hours): Temp Pulse Resp BP Pulse Ox 98 F 61 20 175/81 H 100 03/24/18 07:30 03/24/18 12:19 03/24/18 07:30 03/24/18 10:12 03/24/18 07:30 Intake and Output: 03/24/18 03/25/18 18:59 06:59 Intake Total 1040 Balance 1040 - Medications Medications: Current Medications Albuterol/Ipratropium (Duoneb 3 Mg/0.5 Mg (3 Ml) Ud) 3 ml INH RQ6 [facility] Last Admin: 03/24/18 19:20 Dose: 3 ml Enoxaparin Sodium (Lovenox) 40 mg SC DAILY [facility] Last Admin: 03/24/18 10:06 Dose: 40 mg Guaifenesin (Mucinex La) 600 mg PO BID [facility] Last Admin: 03/24/18 19:03 Dose: 600 mg Piperacillin Sod/Tazobactam (Sod 3.375 gm/ Sodium Chloride) 100 mls @ 200 mls/ hr IVPB Q8H [facility] PRN Reason: Protocol Stop: 03/29/18 04:29 Last Admin: 03/24/18 20:17 Dose: 200 mls/hr Dextrose/Sodium Chloride (Dextrose 5%/0.45% Ns 1000 Ml) 1,000 mls @ 40 mls/hr IV .Q24H [facility] Last Admin: 03/24/18 20:17 Dose: 40 mls/hr Losartan Potassium (Cozaar) 50 mg PO DAILY [facility] Last Admin: 03/24/18 12:50 Dose: 50 mg Methylprednisolone (Solu-Medrol) 20 mg IVP Q12 [facility] Last Admin: 03/24/18 22:17 Dose: 20 mg Nitroglycerin (Nitro-Bid 2% Oint) 0 ea TOP Q6H [facility] Last Admin: 03/24/18 22:15 Dose: 1 ea Potassium Chloride (Klor-Con 10) 10 meq PO DAILY [facility] Last Admin: 03/24/18 10:07 Dose: 10 meq Rosuvastatin Calcium (Crestor) 2.5 mg PO HS [facility] Last Admin: 03/24/18 22:15 Dose: 2.5 mg - Labs Labs: 03/24/18 07:40 03/24/18 04:00
[2018-03-25] MEDS: Albuterol-Ipratrop 3 mg / 0.5 (3 ml) UD INH SCH ×4 (01:05→19:56)
[2018-03-25] MEDS: Nitroglycerin 2% Ointment Foilpak UD TOP SCH ×4 (04:46→22:28)
[2018-03-25] MEDS: Piperacillin/Tazobact 3.375 GM in Sodium Chloride 100 ML IVPB SCH ×2 (04:46→11:27)
[2018-03-25] MEDS: guaiFENesin 600 mg ER Tab PO SCH ×2 (09:21→17:50)
[2018-03-25] MEDS: Enoxaparin 40 mg Syringe SC SCH (09:22)
[2018-03-25] MEDS: MethylPREDNISolone 40 mg Vial IVP SCH ×2 (09:22→12:15)
[2018-03-25] MEDS: Potassium Chloride 10 mEq ER Tab PO SCH (09:22)
[2018-03-25] MEDS: Dextrose 5%/0.45% NS 1,000 ML IV SCH (12:43)
[2018-03-25] MEDS: Cefepime IV 1 gm in Dextrose 1 GM/50 ML BAG IVPB SCH ×2 (13:56→21:00)
--- NOTE | 2018-03-25 14:40 | PN ---
DATE: SUBJECTIVE: The patient is alert and oriented today. OBJECTIVE: VITAL SIGNS: He is in bed. He is afebrile with blood pressure of 150/74, pulse of 75, respirations 20, hemoglobin oxygen saturation 94%. GENERAL: The patient is not in distress. He does not complain of dyspnea at rest and does not complain of chest pain. His cough has improved. He has had Ativan yesterday during the day and did not have sedative last night or this morning. HEART: Regular. There is no gallop rhythm. LUNGS: Diminished breath sounds over the lung bases. Rhonchi decreased. ABDOMEN: Soft. EXTREMITIES: Legs, no edema. LABORATORY DATA: His white count is reported to be 18,600 yesterday. This is partly from the steroids he is on for therapy. His hemoglobin is 13.2, platelet count 281,000, neutrophils 89%. His BUN is 34, creatinine 0.9. X-ray chest reported that there is no active lung disease. IMPRESSION: Respiratory insufficiency, exacerbation of chronic obstructive pulmonary disease, pneumonitis, degenerative joint disease, hypertension and hypertensive cardiovascular disease, and history of falls. PLAN: Condition discussed with the patient and bronchoscopy discussed. While comprehending the implications of the procedure and the side effects and benefits, the patient declines to have the procedure at this stage. This discussion took place while Liliana March, a nurse was with the patient and was involved in my discussion with the patient. I recommend that we decrease the steroid dosage and gradually taper it off as permissible and follow with CBC and metabolic panel and other testings. The patient's PPD is found to be negative. It was done in the left forearm and shows no reaction. Chest x-ray shows no infiltrate. I recommend to continue the current treatment with bronchodilators, antibiotics, vasodilators, and other measures as necessary. Saji Ortega MD
--- NOTE | 2018-03-25 16:02 | CP.PCM.PCO ---
Physician Communication Note - Physician Communication Note Physician Communication Note: PPD TO LEFT FOREARM READ AT 1200; NEGATIVE, NO INDURATION
[2018-03-25] MEDS: Rosuvastatin Calcium 2.5 mg Tab PO SCH (22:28)
[2018-03-26] MEDS: Albuterol-Ipratrop 3 mg / 0.5 (3 ml) UD INH SCH ×3 (01:07→13:33)
[2018-03-26] MEDS: Cefepime IV 1 gm in Dextrose 1 GM/50 ML BAG IVPB SCH ×3 (04:19→19:30)
[2018-03-26] MEDS: Nitroglycerin 2% Ointment Foilpak UD TOP SCH ×2 (04:20→09:40)
[2018-03-26 08:06] LABS: BLOOD UREA NITROGEN 22 mg/dL (9-20); CALCIUM 8.1 mg/dl (8.6-10.4); GFR AFRICAN-AMERICAN > 60; GFR NON-AFRICAN AMERICAN > 60
[2018-03-26] MEDS: guaiFENesin 600 mg ER Tab PO SCH ×2 (09:38→19:27)
[2018-03-26] MEDS: Enoxaparin 40 mg Syringe SC SCH (09:38)
[2018-03-26] MEDS: Potassium Chloride 10 mEq ER Tab PO SCH (09:39)
--- NOTE | 2018-03-26 09:39 | CP.PCM.PN ---
Subjective - Date & Time of Evaluation Date of Evaluation: 03/25/18 Time of Evaluation: 17:00 - Subjective Subjective: Pt seen and examined, is having less cough, drowsy, he is less short of breath Objective - Vital Signs/Intake and Output Vital Signs (last 24 hours): Temp Pulse Resp BP Pulse Ox 97.7 F 67 20 161/81 H 97 03/26/18 08:27 03/26/18 08:27 03/26/18 08:27 03/26/18 08:27 03/26/18 08:27 Intake and Output: 03/26/18 03/26/18 06:59 18:59 Intake Total 300 Balance 300 - Medications Medications: Current Medications Albuterol/Ipratropium (Duoneb 3 Mg/0.5 Mg (3 Ml) Ud) 3 ml INH RQ6 [facility] Last Admin: 03/26/18 07:33 Dose: 3 ml Enoxaparin Sodium (Lovenox) 40 mg SC DAILY [facility] Last Admin: 03/25/18 09:22 Dose: 40 mg Guaifenesin (Mucinex La) 600 mg PO BID [facility] Last Admin: 03/25/18 17:50 Dose: 600 mg Cefepime HCl (Maxipime Iv 1 Gm Premix) 1 gm in 50 mls @ 100 mls/hr IVPB Q8H [facility] PRN Reason: Protocol Last Admin: 03/26/18 04:19 Dose: 100 mls/hr Dextrose/Sodium Chloride (Dextrose 5%/0.45% Ns 1000 Ml) 1,000 mls @ 20 mls/hr IV .Q24H [facility] Last Admin: 03/25/18 12:43 Dose: 20 mls/hr Losartan Potassium (Cozaar) 50 mg PO DAILY [facility] Last Admin: 03/25/18 09:21 Dose: 50 mg Methylprednisolone (Solu-Medrol) 20 mg IVP Q24H [facility] Last Admin: 03/25/18 12:15 Dose: Not Given Nitroglycerin (Nitro-Bid 2% Oint) 0 ea TOP Q6H [facility] Last Admin: 03/26/18 04:20 Dose: 1 ea Potassium Chloride (Klor-Con 10) 10 meq PO DAILY [facility] Last Admin: 03/25/18 09:22 Dose: 10 meq Rosuvastatin Calcium (Crestor) 2.5 mg PO HS [facility] Last Admin: 03/25/18 22:28 Dose: 2.5 mg - Labs Labs: 03/24/18 07:40 03/26/18 07:27 - Constitutional Appears: No Acute Distress - Head Exam Head Exam: ATRAUMATIC, NORMAL INSPECTION, NORMOCEPHALIC - Eye Exam Eye Exam: EOMI, Normal appearance, PERRL Pupil Exam: NORMAL ACCOMODATION, PERRL - Respiratory Exam Respiratory Exam: Clear to Ausculation Bilateral, NORMAL BREATHING PATTERN - Cardiovascular Exam Cardiovascular Exam: REGULAR RHYTHM, +S1, +S2. absent: Murmur - GI/Abdominal Exam GI & Abdominal Exam: Soft, Normal Bowel Sounds. absent: Tenderness - Rectal Exam Rectal Exam: NORMAL INSPECTION Assessment and Plan (1) Chr obstructive pulmonary disease w/ acute lower respiratory infxn Assessment & Plan: right now without BIPAP and doing well Status: Acute (2) HTN (hypertension), benign Status: Acute (3) Lightheadedness Status: Acute (4) Prophylactic measure Status: Acute
--- NOTE | 2018-03-26 09:48 | CP.PCM.PN ---
Objective - Vital Signs/Intake and Output Vital Signs (last 24 hours): Temp Pulse Resp BP Pulse Ox 97.7 F 67 20 161/81 H 97 03/26/18 08:27 03/26/18 08:27 03/26/18 08:27 03/26/18 08:27 03/26/18 08:27 Intake and Output: 03/26/18 03/26/18 06:59 18:59 Intake Total 300 Balance 300 - Medications Medications: Current Medications Albuterol/Ipratropium (Duoneb 3 Mg/0.5 Mg (3 Ml) Ud) 3 ml INH RQ6 [facility] Last Admin: 03/26/18 07:33 Dose: 3 ml Enoxaparin Sodium (Lovenox) 40 mg SC DAILY [facility] Last Admin: 03/26/18 09:38 Dose: 40 mg Guaifenesin (Mucinex La) 600 mg PO BID [facility] Last Admin: 03/26/18 09:38 Dose: 600 mg Cefepime HCl (Maxipime Iv 1 Gm Premix) 1 gm in 50 mls @ 100 mls/hr IVPB Q8H [facility] PRN Reason: Protocol Last Admin: 03/26/18 04:19 Dose: 100 mls/hr Dextrose/Sodium Chloride (Dextrose 5%/0.45% Ns 1000 Ml) 1,000 mls @ 20 mls/hr IV .Q24H [facility] Last Admin: 03/25/18 12:43 Dose: 20 mls/hr Losartan Potassium (Cozaar) 50 mg PO DAILY [facility] Last Admin: 03/26/18 09:38 Dose: 50 mg Methylprednisolone (Solu-Medrol) 20 mg IVP Q24H [facility] Last Admin: 03/25/18 12:15 Dose: Not Given Nitroglycerin (Nitro-Bid 2% Oint) 0 ea TOP Q6H [facility] Last Admin: 03/26/18 09:40 Dose: 1 ea Potassium Chloride (Klor-Con 10) 10 meq PO DAILY [facility] Last Admin: 03/26/18 09:39 Dose: 10 meq Rosuvastatin Calcium (Crestor) 2.5 mg PO HS [facility] Last Admin: 03/25/18 22:28 Dose: 2.5 mg - Labs Labs: 03/24/18 07:40 03/26/18 07:27 Assessment and Plan (1) Chr obstructive pulmonary disease w/ acute lower respiratory infxn Status: Acute (2) HTN (hypertension), benign Status: Acute (3) Lightheadedness Status: Acute (4) Prophylactic measure Status: Acute
[2018-03-26] MEDS: MethylPREDNISolone 40 mg Vial IVP SCH (12:55)
[2018-03-26] MEDS: Dextrose 5%/0.45% NS 1,000 ML IV SCH (13:00)
[2018-03-26 14:58] LABS: BASO % 0.2 % (0.0-2.0); EOS # 0.3 K/uL (0.0-0.7); EOS % 1.9 % (0.0-4.0); HEMOGLOBIN 13.1 g/dL (12.0-18.0); LYMPH # 0.8 K/uL (1.0-4.3); LYMPH % 5.9 % (20.0-40.0); MEAN CELL VOLUME 89.5 fL (80.0-94.0); MEAN CORPUSCULAR HEMOGLOBIN 30.5 pg (27.0-31.0); MEAN PLATELET VOLUME 9.2 fL (7.2-11.7); MONO # 0.7 K/uL (0.0-0.8); MONO % 4.7 % (0.0-10.0); NEUT # 12.5 K/uL (1.8-7.0); NEUT % 87.3 % (50.0-75.0); PLATELET COUNT 319 K/uL (130-400); RED CELL DISTRIBUTION WIDTH 13.7 % (11.5-14.5); WHITE BLOOD COUNT 14.3 K/uL (4.8-10.8)
[2018-03-26 15:39] LABS: EOSINOPHIL 2 % (0-4); LYMPHOCYTE 6 % (20-40); MONOCYTE 4 % (0-10); NEUTROPHIL 88 % (50-75); TOTAL CELLS COUNTED 100
[2018-03-26 15:40] LABS: PLATELET ESTIMATE NORMAL (NORMAL)
[2018-03-27] MEDS: Albuterol-Ipratrop 3 mg / 0.5 (3 ml) UD INH SCH ×4 (01:45→21:03)
[2018-03-27] MEDS: Cefepime IV 1 gm in Dextrose 1 GM/50 ML BAG IVPB SCH ×3 (03:43→21:28)
[2018-03-27] MEDS: guaiFENesin 600 mg ER Tab PO SCH ×2 (09:45→17:21)
[2018-03-27] MEDS: Potassium Chloride 10 mEq ER Tab PO SCH (09:45)
[2018-03-27] MEDS: Enoxaparin 40 mg Syringe SC SCH (09:46)
[2018-03-27] MEDS: Metoprolol Succinate 25 mg XL Tab PO SCH (09:48)
[2018-03-27 14:14] LABS: BASO % 0.1 % (0.0-2.0); EOS # 0.3 K/uL (0.0-0.7); HEMOGLOBIN 13.8 g/dL (12.0-18.0); LYMPH # 1.3 K/uL (1.0-4.3); LYMPH % 8.1 % (20.0-40.0); MEAN CELL VOLUME 89.7 fL (80.0-94.0); MEAN CORPUSCULAR HEMOGLOBIN 31.1 pg (27.0-31.0); MEAN CORPUSCULAR HGB CONC 34.6 g/dL (33.0-37.0); MEAN PLATELET VOLUME 9.6 fL (7.2-11.7); MONO # 0.8 K/uL (0.0-0.8); MONO % 4.9 % (0.0-10.0); NEUT # 13.3 K/uL (1.8-7.0); NEUT % 84.9 % (50.0-75.0); PLATELET COUNT 332 K/uL (130-400); RBC 4.43 Mil/uL (4.40-5.90); RED CELL DISTRIBUTION WIDTH 13.7 % (11.5-14.5); WHITE BLOOD COUNT 15.7 K/uL (4.8-10.8)
[2018-03-27 14:46] LABS: BANDS 4 % (0-2); EOSINOPHIL 2 % (0-4); METAMYELOCYTE 1 % (0-0); MONOCYTE 2 % (0-10); MYELOCYTE 1 % (0-0); TOTAL CELLS COUNTED 100
[2018-03-27 14:47] LABS: LYMPHOCYTE 10 % (20-40); NEUTROPHIL 80 % (50-75); PLATELET ESTIMATE NORMAL (NORMAL)
--- NOTE | 2018-03-28 00:54 | CP.PCM.PN ---
Subjective - Date & Time of Evaluation Date of Evaluation: 03/27/18 Time of Evaluation: 18:00 - Subjective Subjective: Pt seen and examined at bedside Objective - Vital Signs/Intake and Output Vital Signs (last 24 hours): Temp Pulse Resp BP Pulse Ox 98.2 F 66 20 152/77 H 98 03/27/18 23:10 03/27/18 23:30 03/27/18 23:10 03/27/18 23:10 03/27/18 23:10 Intake and Output: 03/27/18 03/28/18 18:59 06:59 Intake Total 100 Balance 100 - Medications Medications: Current Medications Albuterol/Ipratropium (Duoneb 3 Mg/0.5 Mg (3 Ml) Ud) 3 ml INH RQ6 [facility] Last Admin: 03/27/18 21:03 Dose: Not Given Aspirin (Ecotrin) 81 mg PO DAILY [facility] Last Admin: 03/27/18 09:48 Dose: 81 mg Enoxaparin Sodium (Lovenox) 40 mg SC DAILY [facility] Last Admin: 03/27/18 09:46 Dose: 40 mg Guaifenesin (Mucinex La) 600 mg PO BID [facility] Last Admin: 03/27/18 17:21 Dose: 600 mg Cefepime HCl (Maxipime Iv 1 Gm Premix) 1 gm in 50 mls @ 100 mls/hr IVPB Q8H [facility] PRN Reason: Protocol Last Admin: 03/27/18 21:28 Dose: 100 mls/hr Losartan Potassium (Cozaar) 100 mg PO DAILY [facility] Last Admin: 03/27/18 09:45 Dose: 100 mg Metoprolol Succinate (Toprol Xl) 25 mg PO DAILY [facility] Last Admin: 03/27/18 09:48 Dose: 25 mg Potassium Chloride (Klor-Con 10) 10 meq PO DAILY [facility] Last Admin: 03/27/18 09:45 Dose: 10 meq Prednisone (Prednisone Tab) 10 mg PO DAILY [facility] Rosuvastatin Calcium (Crestor) 5 mg PO HS [facility] Last Admin: 03/27/18 21:28 Dose: 5 mg - Labs Labs: 03/27/18 14:04 03/26/18 07:27 Assessment and Plan (1) Chr obstructive pulmonary disease w/ acute lower respiratory infxn Status: Acute (2) HTN (hypertension), benign Status: Acute (3) Lightheadedness Status: Acute (4) Prophylactic measure Status: Acute
[2018-03-28] MEDS: Albuterol-Ipratrop 3 mg / 0.5 (3 ml) UD INH SCH ×4 (02:26→20:30)
[2018-03-28] MEDS: Cefepime IV 1 gm in Dextrose 1 GM/50 ML BAG IVPB SCH ×3 (04:58→20:20)
[2018-03-28] MEDS: Enoxaparin 40 mg Syringe SC SCH (10:00)
[2018-03-28] MEDS: guaiFENesin 600 mg ER Tab PO SCH ×2 (10:00→17:22)
[2018-03-28] MEDS: Metoprolol Succinate 25 mg XL Tab PO SCH (10:00)
[2018-03-28] MEDS: Potassium Chloride 10 mEq ER Tab PO SCH (10:01)
[2018-03-28 14:25] LABS: BASO % 0.3 % (0.0-2.0); EOS # 0.3 K/uL (0.0-0.7); EOS % 1.9 % (0.0-4.0); HEMOGLOBIN 14.9 g/dL (12.0-18.0); LYMPH # 0.8 K/uL (1.0-4.3); LYMPH % 5.7 % (20.0-40.0); MEAN CELL VOLUME 90.6 fL (80.0-94.0); MEAN CORPUSCULAR HEMOGLOBIN 31.2 pg (27.0-31.0); MEAN CORPUSCULAR HGB CONC 34.5 g/dL (33.0-37.0); MEAN PLATELET VOLUME 9.4 fL (7.2-11.7); MONO # 0.4 K/uL (0.0-0.8); MONO % 2.6 % (0.0-10.0); NEUT # 12.5 K/uL (1.8-7.0); NEUT % 89.5 % (50.0-75.0); NRBC % 0.1 % (0.0-2.0); PLATELET COUNT 307 K/uL (130-400); RBC 4.78 Mil/uL (4.40-5.90); RED CELL DISTRIBUTION WIDTH 13.9 % (11.5-14.5)
[2018-03-28 15:03] LABS: BANDS 1 % (0-2); LYMPHOCYTE 7 % (20-40); MONOCYTE 1 % (0-10); NEUTROPHIL 91 % (50-75); TOTAL CELLS COUNTED 100
[2018-03-28 15:05] LABS: PLATELET ESTIMATE NORMAL (NORMAL)
--- NOTE | 2018-03-28 23:28 | CP.PCM.PN ---
Subjective - Date & Time of Evaluation Date of Evaluation: 03/28/18 Time of Evaluation: 19:00 - Subjective Subjective: Pt seen and examined at bedside Objective - Vital Signs/Intake and Output Vital Signs (last 24 hours): Temp Pulse Resp BP Pulse Ox 97.3 F L 67 18 132/72 95 03/28/18 15:13 03/28/18 15:13 03/28/18 15:13 03/28/18 15:13 03/28/18 15:13 Intake and Output: 03/28/18 03/29/18 18:59 06:59 Intake Total 100 450 Balance 100 450 - Medications Medications: Current Medications Albuterol/Ipratropium (Duoneb 3 Mg/0.5 Mg (3 Ml) Ud) 3 ml INH RQ6 [facility] Last Admin: 03/28/18 20:30 Dose: 3 ml Aspirin (Ecotrin) 81 mg PO DAILY [facility] Last Admin: 03/28/18 10:00 Dose: 81 mg Enoxaparin Sodium (Lovenox) 40 mg SC DAILY [facility] Last Admin: 03/28/18 10:00 Dose: 40 mg Guaifenesin (Mucinex La) 600 mg PO BID [facility] Last Admin: 03/28/18 17:22 Dose: 600 mg Cefepime HCl (Maxipime Iv 1 Gm Premix) 1 gm in 50 mls @ 100 mls/hr IVPB Q8H [facility] PRN Reason: Protocol Last Admin: 03/28/18 20:20 Dose: 100 mls/hr Losartan Potassium (Cozaar) 100 mg PO DAILY [facility] Last Admin: 03/28/18 10:00 Dose: 100 mg Metoprolol Succinate (Toprol Xl) 50 mg PO DAILY [facility] Potassium Chloride (Klor-Con 10) 10 meq PO DAILY [facility] Last Admin: 03/28/18 10:01 Dose: 10 meq Prednisone (Prednisone Tab) 10 mg PO DAILY [facility] Last Admin: 03/28/18 10:01 Dose: 10 mg Rosuvastatin Calcium (Crestor) 5 mg PO HS [facility] Last Admin: 03/28/18 21:35 Dose: 5 mg - Labs Labs: 03/28/18 14:21 03/26/18 07:27 Assessment and Plan (1) Chr obstructive pulmonary disease w/ acute lower respiratory infxn Status: Acute (2) HTN (hypertension), benign Status: Acute (3) Lightheadedness Status: Acute (4) Prophylactic measure Status: Acute
[2018-03-29] MEDS: Albuterol-Ipratrop 3 mg / 0.5 (3 ml) UD INH SCH ×4 (01:16→19:35)
[2018-03-29] MEDS: Cefepime IV 1 gm in Dextrose 1 GM/50 ML BAG IVPB SCH ×3 (04:56→20:27)
--- NOTE | 2018-03-29 08:08 | PN ---
DATE: 03/28/2018 SUBJECTIVE: The patient is alert and oriented, in bed. VITAL SIGNS: He is afebrile with blood pressure of 164/76, pulse 80, respirations 20, hemoglobin oxygen saturation of 97%. GENERAL: The patient is not in acute distress. HEART: Regular. There is no gallop rhythm. LUNGS: Diminished breath sounds over the lung bases. There are no rhonchi. LABORATORY DATA: His white count is 15,700, hemoglobin 13.8, platelet count 332,000, polymorphonuclear leukocytes 80%. The patient is on steroids. The patient is not producing much sputum; however, the attempts are being made to collect further sputum studies. Chest x-ray was reported to show no active lung lesion. IMPRESSION: Respiratory insufficiency, pneumonitis, hypertensive cardiovascular disease, degenerative joint disease, and history of falls. PLAN: To continue with the current regimen including bronchodilator, antibiotics, and oxygen therapy. Saji Ortega MD
[2018-03-29] MEDS: Potassium Chloride 10 mEq ER Tab PO SCH (10:45)
[2018-03-29] MEDS: Metoprolol Succinate 50 mg XL Tab PO SCH (10:45)
[2018-03-29] MEDS: guaiFENesin 600 mg ER Tab PO SCH ×2 (10:46→17:14)
[2018-03-29] MEDS: Enoxaparin 40 mg Syringe SC SCH (10:46)
--- NOTE | 2018-03-29 15:12 | PN ---
DATE: PHYSICAL EXAMINATION GENERAL: The patient is alert and oriented, in no acute distress. VITAL SIGNS: Afebrile. Blood pressure 142/78, pulse 60, respirations 20, hemoglobin-oxygen saturation of 95%. HEART: Regular. There is no gallop rhythm. LUNGS: Reveal diminished breath sounds over the lung bases. No rhonchi. ABDOMEN: Soft. EXTREMITIES: Legs, no edema. LABORATORY DATA: His white count is 14,000, hemoglobin 14.9, MCV 91, platelet count 307,000. His workup is in progress. IMPRESSION: Respiratory insufficiency, pneumonitis, degenerative joint disease, history of falls. PLAN: To continue the current management. Saji Ortega MD
--- NOTE | 2018-03-29 16:35 | CP.PCM.PN ---
Subjective - Date & Time of Evaluation Date of Evaluation: 03/29/18 Time of Evaluation: 18:40 - Subjective Subjective: Pt is seen and examined at bedside Objective - Vital Signs/Intake and Output Vital Signs (last 24 hours): Temp Pulse Resp BP Pulse Ox 97.8 F 60 18 118/65 96 03/29/18 15:30 03/29/18 15:30 03/29/18 15:30 03/29/18 15:30 03/29/18 15:30 Intake and Output: 03/29/18 03/29/18 06:59 18:59 Intake Total 600 200 Output Total 300 Balance 600 -100 - Medications Medications: Current Medications Albuterol/Ipratropium (Duoneb 3 Mg/0.5 Mg (3 Ml) Ud) 3 ml INH RQ6 [facility] Last Admin: 03/29/18 13:06 Dose: 3 ml Aspirin (Ecotrin) 81 mg PO DAILY [facility] Last Admin: 03/29/18 10:46 Dose: 81 mg Guaifenesin (Mucinex La) 600 mg PO BID [facility] Last Admin: 03/29/18 10:46 Dose: 600 mg Cefepime HCl (Maxipime Iv 1 Gm Premix) 1 gm in 50 mls @ 100 mls/hr IVPB Q8H [facility] PRN Reason: Protocol Last Admin: 03/29/18 12:30 Dose: 100 mls/hr Losartan Potassium (Cozaar) 100 mg PO DAILY [facility] Last Admin: 03/29/18 10:45 Dose: 100 mg Metoprolol Succinate (Toprol Xl) 50 mg PO DAILY [facility] Last Admin: 03/29/18 10:45 Dose: 50 mg Potassium Chloride (Klor-Con 10) 10 meq PO DAILY [facility] Last Admin: 03/29/18 10:45 Dose: 10 meq Prednisone (Prednisone Tab) 5 mg PO DAILY [facility] Rosuvastatin Calcium (Crestor) 5 mg PO HS [facility] Last Admin: 03/28/18 21:35 Dose: 5 mg - Labs Labs: 03/28/18 14:21 03/26/18 07:27 Assessment and Plan (1) Chr obstructive pulmonary disease w/ acute lower respiratory infxn Status: Acute (2) HTN (hypertension), benign Status: Acute (3) Lightheadedness Status: Acute (4) Prophylactic measure Status: Acute
[2018-03-30] MEDS: Albuterol-Ipratrop 3 mg / 0.5 (3 ml) UD INH SCH ×4 (01:21→19:33)
[2018-03-30 03:20] VITALS: RESP 20
[2018-03-30] MEDS: Cefepime IV 1 gm in Dextrose 1 GM/50 ML BAG IVPB SCH (04:04)
[2018-03-30 07:26] LABS: BLOOD UREA NITROGEN 35 mg/dL (9-20); CALCIUM 8.2 mg/dl (8.6-10.4); GFR AFRICAN-AMERICAN > 60; GFR NON-AFRICAN AMERICAN > 60
[2018-03-30 07:34] LABS: BASO % 0.3 % (0.0-2.0); EOS # 0.3 K/uL (0.0-0.7); EOS % 1.9 % (0.0-4.0); HEMOGLOBIN 13.7 g/dL (12.0-18.0); LYMPH # 1.5 K/uL (1.0-4.3); LYMPH % 11.3 % (20.0-40.0); MEAN CELL VOLUME 89.7 fL (80.0-94.0); MEAN CORPUSCULAR HEMOGLOBIN 31.1 pg (27.0-31.0); MEAN CORPUSCULAR HGB CONC 34.7 g/dL (33.0-37.0); MEAN PLATELET VOLUME 9.8 fL (7.2-11.7); MONO # 0.8 K/uL (0.0-0.8); NEUT # 10.8 K/uL (1.8-7.0); NEUT % 80.5 % (50.0-75.0); NRBC % 0.1 % (0.0-2.0); RBC 4.4 Mil/uL (4.40-5.90); RED CELL DISTRIBUTION WIDTH 13.9 % (11.5-14.5); WHITE BLOOD COUNT 13.5 K/uL (4.8-10.8)
[2018-03-30] MEDS: Metoprolol Succinate 50 mg XL Tab PO SCH (10:23)
[2018-03-30] MEDS: Potassium Chloride 10 mEq ER Tab PO SCH (10:23)
[2018-03-30] MEDS: guaiFENesin 600 mg ER Tab PO SCH ×2 (10:25→17:52)
--- NOTE | 2018-03-30 20:48 | PN ---
DATE: ____ PHYSICAL EXAMINATION: GENERAL: The patient is alert, oriented, not in distress. He is afebrile. VITAL SIGNS: His blood pressure 140/70, pulse is 70, respirations 20, hemoglobin oxygen saturation of 96%. HEART: Regular. No gallop rhythm. LUNGS: Diminished breath sounds over the lung bases. Rhonchi decreased. ABDOMEN: Soft. EXTREMITIES: Legs, no edema. LABORATORY DATA: White count is 13,500, hemoglobin 13.7, and platelet count 307,000. IMPRESSION: Respiratory insufficiency, chronic obstructive pulmonary disease exacerbation, pneumonitis, hypertension, diabetes mellitus. Chest x-ray is unremarkable. PLAN: To continue with the current management. Saji Ortega MD
--- NOTE | 2018-03-30 22:59 | CP.PCM.PN ---
Subjective - Date & Time of Evaluation Date of Evaluation: 03/30/18 Time of Evaluation: 19:00 Objective - Vital Signs/Intake and Output Vital Signs (last 24 hours): Temp Pulse Resp BP Pulse Ox 97.0 F L 70 20 126/56 L 96 03/30/18 15:15 03/30/18 15:15 03/30/18 15:15 03/30/18 15:15 03/30/18 15:15 - Medications Medications: Current Medications Albuterol/Ipratropium (Duoneb 3 Mg/0.5 Mg (3 Ml) Ud) 3 ml INH RQ6 [facility] Last Admin: 03/30/18 19:33 Dose: 3 ml Aspirin (Ecotrin) 81 mg PO DAILY [facility] Last Admin: 03/30/18 10:23 Dose: 81 mg Guaifenesin (Mucinex La) 600 mg PO BID [facility] Last Admin: 03/30/18 17:52 Dose: 600 mg Losartan Potassium (Cozaar) 100 mg PO DAILY [facility] Last Admin: 03/30/18 10:23 Dose: 100 mg Metoprolol Succinate (Toprol Xl) 50 mg PO DAILY [facility] Last Admin: 03/30/18 10:23 Dose: 50 mg Potassium Chloride (Klor-Con 10) 10 meq PO DAILY [facility] Last Admin: 03/30/18 10:23 Dose: 10 meq Prednisone (Prednisone Tab) 5 mg PO DAILY [facility] Last Admin: 03/30/18 10:23 Dose: 5 mg Rosuvastatin Calcium (Crestor) 5 mg PO HS [facility] Last Admin: 03/30/18 21:39 Dose: 5 mg - Labs Labs: 03/30/18 06:56 03/30/18 06:56 Assessment and Plan (1) Chr obstructive pulmonary disease w/ acute lower respiratory infxn Status: Acute (2) HTN (hypertension), benign Status: Acute (3) Lightheadedness Status: Acute (4) Prophylactic measure Status: Acute
[2018-03-31] MEDS: Albuterol-Ipratrop 3 mg / 0.5 (3 ml) UD INH SCH ×3 (01:17→13:14)
[2018-03-31 09:20] VITALS: O2SAT 96
[2018-03-31] MEDS: guaiFENesin 600 mg ER Tab PO SCH ×2 (10:28→17:29)
[2018-03-31] MEDS: Potassium Chloride 10 mEq ER Tab PO SCH (10:28)
[2018-03-31] MEDS: Metoprolol Succinate 50 mg XL Tab PO SCH (10:28)
--- NOTE | 2018-03-31 14:27 | PN ---
DATE: SUBJECTIVE: The patient is alert, oriented. PHYSICAL EXAMINATION GENERAL: He is not in distress. VITAL SIGNS: He is afebrile with blood pressure 150/86, pulse 90, respirations 20, hemoglobin oxygen saturation of 96%. HEART: Regular. There is no gallop rhythm. LUNGS: Diminished breath sounds at bases. No rhonchi. ABDOMEN: Soft. EXTREMITIES: Legs, no edema. LABORATORY DATA: His lab studies show white count of 13,500, hemoglobin 13.7, platelet count 307,000. His slightly high white count is considered to be the result of his steroid therapy. Serum sodium is 139, potassium 4.2, BUN 35, creatinine 1.1. Chest x-ray is reported unremarkable. Two of the sputa sent for AFB is reported negative. Result on the third is awaited. The patient's symptoms have improved and he remains stable and chest x-ray is reported unremarkable. IMPRESSION: Respiratory insufficiency, chronic obstructive pulmonary disease, hypertension. PLAN: To continue with the current management. Saji Ortega MD
--- NOTE | 2018-03-31 15:46 | CP.PCM.PN ---
Subjective - Date & Time of Evaluation Date of Evaluation: 03/31/18 Time of Evaluation: 10:45 - Subjective Subjective: Patient seen today, awake, alert, oriented , calm and co operative , denies any sob, cough or congestion oob ambulates antonette hallway without sob a fib x 3 - negative Objective - Vital Signs/Intake and Output Vital Signs (last 24 hours): Temp Pulse Resp BP Pulse Ox 98.1 F 67 20 151/86 H 96 03/31/18 07:30 03/31/18 12:58 03/31/18 07:30 03/31/18 07:30 03/31/18 07:30 Intake and Output: 03/31/18 03/31/18 06:59 18:59 Intake Total 100 200 Balance 100 200 - Medications Medications: Current Medications Albuterol/Ipratropium (Duoneb 3 Mg/0.5 Mg (3 Ml) Ud) 3 ml INH RQ6 [facility] Last Admin: 03/31/18 13:14 Dose: 3 ml Aspirin (Ecotrin) 81 mg PO DAILY [facility] Last Admin: 03/31/18 10:29 Dose: 81 mg Guaifenesin (Mucinex La) 600 mg PO BID [facility] Last Admin: 03/31/18 10:28 Dose: 600 mg Losartan Potassium (Cozaar) 100 mg PO DAILY [facility] Last Admin: 03/31/18 10:29 Dose: 100 mg Metoprolol Succinate (Toprol Xl) 50 mg PO DAILY [facility] Last Admin: 03/31/18 10:28 Dose: 50 mg Potassium Chloride (Klor-Con 10) 10 meq PO DAILY [facility] Last Admin: 03/31/18 10:28 Dose: 10 meq Prednisone (Prednisone Tab) 5 mg PO DAILY [facility] Last Admin: 03/31/18 10:28 Dose: 5 mg Rosuvastatin Calcium (Crestor) 5 mg PO HS [facility] Last Admin: 03/30/18 21:39 Dose: 5 mg - Labs Labs: 03/30/18 06:56 03/30/18 06:56 - Constitutional Appears: No Acute Distress - Respiratory Exam Respiratory Exam: Clear to Ausculation Bilateral, NORMAL BREATHING PATTERN - Cardiovascular Exam Cardiovascular Exam: REGULAR RHYTHM, +S1, +S2 - Neurological Exam Neurological Exam: Alert, Awake Assessment and Plan - Assessment and Plan (Free Text) Assessment: A/P 77 yr old male with pmhx of COPD, HTN, Hypercholesterolemia, Kidney Stones, Chronic Kidney Disease admitted with sob and cough x 5 days patient clinically improved with steroids, neb, treatment and IV antibiotics CXR- No significant pleural effusion identified, no pneumothorax afib x3 - negative D/W Dr. Soria, stable for discharge to [facility] today and Dr. Soria will follow the patient at [facility]
[2018-03-31 15:58] VITALS: BP 138/72; PULSE 86; TEMP 97.4
--- NOTE | 2018-04-01 12:28 | CP.PCM.DIS ---
Provider - Provider Date of Admission: 03/21/18 10:08 Attending physician: Joe Soria MD Time Spent in preparation of Discharge (in minutes): 45 Diagnosis - Discharge Diagnosis (1) Chr obstructive pulmonary disease w/ acute lower respiratory infxn Status: Acute (2) HTN (hypertension), benign Status: Acute (3) Lightheadedness Status: Acute (4) Prophylactic measure Status: Acute Hospital Course - Lab Results Lab Results: Micro Results 03/29/18 08:37 Other: Please Indicate Mycobacterial Culture - Preliminary 03/28/18 15:30 Other: Please Indicate Mycobacterial Culture - Preliminary 03/23/18 13:05 Blood-Venous Blood Culture - Final NO GROWTH AFTER 5 DAYS 03/24/18 Unknown Other: Please Indicate Mycobacterial Culture - Preliminary 03/21/18 09:18 Blood Blood Culture - Final NO GROWTH AFTER 5 DAYS 03/21/18 09:18 Blood Gram Stain - Final TEST NOT PERFORMED 03/21/18 10:10 Blood Blood Culture - Final NO GROWTH AFTER 5 DAYS 03/23/18 04:00 Urine Urine Culture - Final No Growth (<1,000 CFU/ML) 03/21/18 10:30 Urine,Catheterized Urine Culture - Final No Growth (<1,000 CFU/ML) Most Recent Lab Values WBC 13.5 K/uL (4.8-10.8) H 03/30/18 06:56 RBC 4.40 Mil/uL (4.40-5.90) 03/30/18 06:56 Hgb 13.7 g/dL (12.0-18.0) 03/30/18 06:56 Hct 39.4 % (35.0-51.0) 03/30/18 06:56 MCV 89.7 fL (80.0-94.0) 03/30/18 06:56 MCH 31.1 pg (27.0-31.0) H 03/30/18 06:56 MCHC 34.7 g/dL (33.0-37.0) 03/30/18 06:56 RDW 13.9 % (11.5-14.5) 03/30/18 06:56 Plt Count 307 K/uL (130-400) 03/30/18 06:56 MPV 9.8 fL (7.2-11.7) 03/30/18 06:56 Neut % (Auto) 80.5 % (50.0-75.0) H 03/30/18 06:56 Lymph % (Auto) 11.3 % (20.0-40.0) L 03/30/18 06:56 [place] % (Auto) 6.0 % (0.0-10.0) 03/30/18 06:56 Eos % (Auto) 1.9 % (0.0-4.0) 03/30/18 06:56 Baso % (Auto) 0.3 % (0.0-2.0) 03/30/18 06:56 Neut # (Auto) 10.8 K/uL (1.8-7.0) H 03/30/18 06:56 Lymph # (Auto) 1.5 K/uL (1.0-4.3) 03/30/18 06:56 [place] # (Auto) 0.8 K/uL (0.0-0.8) 03/30/18 06:56 Eos # (Auto) 0.3 K/uL (0.0-0.7) 03/30/18 06:56 Baso # (Auto) 0.0 K/uL (0.0-0.2) 03/30/18 06:56 Neutrophils % (Manual) 91 % (50-75) H 03/28/18 14:21 Band Neutrophils % 1 % (0-2) 03/28/18 14:21 Lymphocytes % (Manual) 7 % (20-40) L 03/28/18 14:21 Monocytes % (Manual) 1 % (0-10) 03/28/18 14:21 Eosinophils % (Manual) 2 % (0-4) 03/27/18 14:04 Metamyelocytes % 1 % (0-0) H 03/27/18 14:04 Myelocytes % 1 % (0-0) H 03/27/18 14:04 Nucleated RBC % 1 % (0-0) H 03/21/18 09:26 Toxic Granulation Present 03/21/18 09:26 Platelet Estimate Normal (NORMAL) 03/28/18 14:21 RBC Morphology Normal 03/28/18 14:21 Puncture Site Lra 03/24/18 14:28 pCO2 38 mm/Hg (35-45) 03/24/18 14:28 pO2 77 mm/Hg (80-100) L 03/24/18 14:28 HCO3 29.6 mmol/L (21-28) H 03/24/18 14:28 ABG pH 7.50 (7.35-7.45) H 03/24/18 14:28 ABG Total CO2 30.8 mmol/L (22-28) H 03/24/18 14:28 ABG O2 Saturation 97.7 % (95-98) 03/24/18 14:28 ABG Base Excess 6.1 mmol/L (-2.0-3.0) H 03/24/18 14:28 ABG Hemoglobin 15.5 g/dL (11.7-17.4) 03/24/18 14:28 ABG Carboxyhemoglobin 1.8 % (0.5-1.5) H 03/24/18 14:28 POC ABG HHb (Measured) 2.2 % (0.0-5.0) 03/24/18 14:28 ABG Methemoglobin 1.3 % (0.0-3.0) 03/24/18 14:28 Kodak Test Pos 03/24/18 14:28 A-a O2 Difference 132.0 mm/Hg 03/24/18 14:28 Respiratory Index 1.7 03/24/18 14:28 Hgb O2 Saturation 94.7 % (95.0-98.0) L 03/24/18 14:28 Liter Flow 4.0 03/24/18 14:28 Vent Mode Bipap 03/21/18 21:00 Mechanical Rate 15 03/21/18 21:00 FiO2 36.0 % 03/24/18 14:28 Inspiratory BiPAP 14 03/21/18 21:00 Expiratory BiPAP 7 03/21/18 21:00 Sodium 139 mmol/L (132-148) 03/30/18 06:56 Potassium 4.2 mmol/L (3.6-5.2) 03/30/18 06:56 Chloride 110 mmol/L (98-107) H 03/30/18 06:56 Carbon Dioxide 23 mmol/L (22-30) 03/30/18 06:56 Anion Gap 10 (10-20) 03/30/18 06:56 BUN 35 mg/dL (9-20) H 03/30/18 06:56 Creatinine 1.1 mg/dL (0.8-1.5) 03/30/18 06:56 Est GFR ( Amer) > 60 03/30/18 06:56 Est GFR (Non-Af Amer) > 60 03/30/18 06:56 POC Glucose (mg/dL) 126 mg/dL (65-110) H 03/21/18 09:11 Random Glucose 92 mg/dL (75-110) 03/30/18 06:56 Calcium 8.2 mg/dl (8.6-10.4) L 03/30/18 06:56 Iron 49 ug/dL (49-181) 03/23/18 21:46 TIBC 215 ug/dL (250-450) L 03/23/18 21:46 % Saturation 23 (20-55) 03/23/18 21:46 Total Bilirubin 0.6 mg/dL (0.2-1.3) 03/23/18 06:36 AST 43 U/L (17-59) 03/23/18 06:36 ALT 41 U/L (21-72) 03/23/18 06:36 Alkaline Phosphatase 93 U/L (38-126) 03/23/18 06:36 Troponin I 0.0460 ng/mL (0.00-0.120) 03/21/18 09:26 NT-Pro-B Natriuret Pep 3160 pg/mL (0-900) H 03/21/18 09:26 Total Protein 6.3 g/dL (6.3-8.3) 03/23/18 06:36 Total Protein (PEP) 5.8 g/dL (6.1-8.1) L 03/22/18 13:34 Albumin 2.9 g/dL (3.5-5.0) L 03/23/18 06:36 Albumin (PEP) 2.2 g/dL (3.8-4.8) L 03/22/18 13:34 Globulin 3.4 gm/dL (2.2-3.9) 03/23/18 06:36 Albumin/Globulin Ratio 0.8 (1.0-2.1) L 03/23/18 06:36 Fzvzh-9-Hruumxxcn 0.6 g/dL (0.2-0.3) H 03/22/18 13:34 Nuiid-0-Ibtvwfuyd 1.3 g/dL (0.5-0.9) H 03/22/18 13:34 Kevj-6-Kqjgkgfn 0.4 g/dL (0.4-0.6) 03/22/18 13:34 Yuuh-8-Vsnqbfzq 0.4 g/dL (0.2-0.5) 03/22/18 13:34 Gamma Globulins 0.8 g/dL (0.8-1.7) 03/22/18 13:34 Abnorm Protein Band 1 TEST NOT PERFORMED 03/22/18 13:34 Abnorm Protein Band 2 TEST NOT PERFORMED 03/22/18 13:34 Abnorm Protein Band 3 TEST NOT PERFORMED 03/22/18 13:34 Vitamin B12 905 pg/mL (239-931) 03/24/18 04:00 RBC Folate 411 ng/mL RBC (>280) 03/24/18 08:12 TSH 3rd Generation 0.39 mIU/L (0.46-4.68) L 03/24/18 04:00 Urine Color Yellow (YELLOW) 03/23/18 22:38 Urine Clarity Clear (Clear) 03/23/18 22:38 Urine pH 6.0 (5.0-8.0) 03/23/18 22:38 Ur Specific [place] 1.020 (1.003-1.030) 03/23/18 22:38 Urine Protein 1+ mg/dL (NEGATIVE) H 03/23/18 22:38 Urine Glucose (UA) Normal mg/dL (Normal) 03/23/18 22:38 Urine Ketones Negative mg/dL (NEGATIVE) 03/23/18 22:38 Urine Blood 2+ (NEGATIVE) H 03/23/18 22:38 Urine Nitrate Negative (NEGATIVE) 03/23/18 22:38 Urine Bilirubin Negative (NEGATIVE) 03/23/18 22:38 Urine Urobilinogen Normal mg/dL (0.2-1.0) 03/23/18 22:38 Ur Leukocyte Esterase Neg Margie/uL (Negative) 03/23/18 22:38 Urine WBC (Auto) 2 /hpf (0-5) 03/23/18 22:38 Urine RBC (Auto) 12 /hpf (0-3) H 03/23/18 22:38 Ur Squamous Epith Cells < 1 /hpf (0-5) 03/21/18 10:38 Amorphous Sediment Few /ul (<OCC) H 03/21/18 10:38 Urine Bacteria Rare (<OCC) 03/23/18 22:38 LEAH & SPEP Interp See note 03/22/18 13:34 - Hospital Course Hospital Course: pt is seen and examined, is for discharge today, less short of breath A/P 77 yr old male with pmhx of COPD, HTN, Hypercholesterolemia, Kidney Stones, Chronic Kidney Disease admitted with sob and cough x 5 days patient clinically improved with steroids, neb, treatment and IV antibiotics CXR- No significant pleural effusion identified, no pneumothorax afib x3 - negative Pt is, stable for discharge to [facility] today and Dr. Soria will follow the patient at [facility] Discharge Exam - Head Exam Head Exam: ATRAUMATIC, NORMAL INSPECTION, NORMOCEPHALIC - Eye Exam Eye Exam: EOMI, Normal appearance, PERRL Pupil Exam: NORMAL ACCOMODATION, PERRL - ENT Exam ENT Exam: Mucous Membranes Moist - Respiratory Exam Respiratory Exam: Decreased Breath Sounds, Rales, Rhonchi - Cardiovascular Exam Cardiovascular Exam: REGULAR RHYTHM, +S1, +S2 - GI/Abdominal Exam GI & Abdominal Exam: Normal Bowel Sounds - Rectal Exam Rectal Exam: Deferred Discharge Plan - Follow Up Plan Condition: FAIR Disposition: HOME/ ROUTINE Instructions: Exacerbation of COPD (DC) Additional Instructions: Please admit pateint under Dr. Soria service - call Dr. Soria upon pateint arrival tot facility Continue medication as per med. rec
== END 2018-03-31 18:50 | disposition home or self-care (01) | DRG 190 ==
LOC: C.ER 08:56 → C.9E 10:08 → C.5S 11:49 → C.6T 03-23 14:48
PROVIDERS: ADMIT Internal Medicine; ATTEND Internal Medicine
PROC: 5A09457 Assistance with Respiratory Ventilation, 24-96 Consecutive Hours, Continuous Positive Airway Pressure (ICD-10-PCS; principal; 2018-03-21)
DX: J44.0 Chronic obstructive pulmonary disease with (acute) lower respiratory infection (principal); J18.9 Pneumonia, unspecified organism; J84.9 Interstitial pulmonary disease, unspecified; J44.1 Chronic obstructive pulmonary disease with (acute) exacerbation; I13.10 Hypertensive heart and chronic kidney disease without heart failure, with stage 1 through stage 4 chronic kidney disease, or unspecified chronic kidney disease; F03.90 Unspecified dementia, unspecified severity, without behavioral disturbance, psychotic disturbance, mood disturbance, and anxiety; E11.22 Type 2 diabetes mellitus with diabetic chronic kidney disease; N18.9 Chronic kidney disease, unspecified; Z91.81 History of falling; Z87.891 Personal history of nicotine dependence; M19.90 Unspecified osteoarthritis, unspecified site

== ENCOUNTER 2018-12-21 14:39 | Inpatient (IN) | payer MEDICARE ==
[2018-12-21 14:51] VITALS: BMI 27.4
[2018-12-21] MEDS ORDERED: Aspirin 325 mg EC Tablets PO STA (15:30)
[2018-12-21 16:06] LABS: BASO % 0.6 % (0.0-2.0); EOS # 0.1 K/uL (0.0-0.7); EOS % 1.1 % (0.0-4.0); LYMPH # 0.7 K/uL (1.0-4.3); LYMPH % 10.1 % (20.0-40.0); MEAN CELL VOLUME 90.5 fL (80.0-94.0); MEAN CORPUSCULAR HEMOGLOBIN 29.5 pg (27.0-31.0); MEAN CORPUSCULAR HGB CONC 32.6 g/dL (33.0-37.0); MEAN PLATELET VOLUME 8.8 fL (7.2-11.7); MONO # 0.5 K/uL (0.0-0.8); MONO % 6.4 % (0.0-10.0); NEUT % 81.8 % (50.0-75.0); NRBC % 0.2 % (0.0-2.0); RBC 5.64 Mil/uL (4.40-5.90); RED CELL DISTRIBUTION WIDTH 14.5 % (11.5-14.5); WHITE BLOOD COUNT 7.3 K/uL (4.8-10.8)
[2018-12-21 16:10] LABS: HEMOGLOBIN 16.6 g/dL (12.0-18.0)
[2018-12-21 16:12] LABS: ALB/GLOB RATIO 1.6 (1.0-2.1); ALBUMIN 4.5 g/dL (3.5-5.0); ALT/SGPT 28 U/L (21-72); AST/SGOT 39 U/L (17-59); BLOOD UREA NITROGEN 20 mg/dL (9-20); CALCIUM 8.9 mg/dl (8.6-10.4); GFR NON-AFRICAN AMERICAN > 60
[2018-12-21 16:13] LABS: PROTHROMBIN TIME 11.1 SECONDS (9.7-12.2)
[2018-12-21 16:25] LABS: B-TYPE NATRIURETIC PEPTIDE 302 pg/mL (0-900)
--- NOTE | 2018-12-21 16:46 | RAD ---
HISTORY: chest pain COMPARISON: Chest x-ray performed 03/24/[address] chest without IV contrast performed 03/22/18 TECHNIQUE: Chest, one view. FINDINGS: Examination limited by habitus. LUNGS: Biapical pleural thickening. Scattered bilateral reticular nodular opacities. Please note that chest x-ray has limited sensitivity for the detection of pulmonary masses. PLEURA: No significant pleural effusion identified. No definite pneumothorax . CARDIOVASCULAR: Borderline cardiomegaly. Ectatic aorta. Atherosclerotic calcifications. OSSEOUS STRUCTURES: Degenerative changes. VISUALIZED UPPER ABDOMEN: Unremarkable. OTHER FINDINGS: None. IMPRESSION: Ectatic aorta. Biapical pleural thickening. Scattered bilateral reticular nodular opacities.
[2018-12-21] MEDS ORDERED: Albuterol-Ipratrop 3 mg / 0.5 (3 ml) UD INH STA (16:56)
--- NOTE | 2018-12-21 17:01 | CP.PCM.HP ---
History of Present Illness - History of Present Illness History of Present Illness: Admission History and Physical Dr. Richard HPI: 78 y/o male with PMHx of HTN presents to the ED with chest pain, palp, SOB, and dizziness. Patient is a poor historian and states that his and friend brought him to the ED. They were unable to be reached by the time of examination. Patient states he had a few minutes of left sided non radiating chest pain that went with SOB. Patient states he vomited once in the car on the way to the ED. After that dizziness that caused vomiting stopped. Patient feels much better after waiting in the ED to be seen. Per RN, patient is confused. When first seen, he noted that he is here today a lso because he fell this morning out of his bed, not because of chest pain evaluation. After he fell, he denies LOC or hitting his head. Does not have bruising, scratches or pain from it. Patient has only been oriented to self in the ED. 12 point ROS was negative at the time of exam. PMHx: HTN PSHx: denies FHx: mom and dad in his childhood, unknown FHx SocHx: quit tobacco 5-6 years ago, was 1 ppd for 10 years. Also quit social EtOH 5 years ago. Denies illicit drugs. Meds: Endorses only being on three different HTN meds. But upon reviewing records, would likely be lopressor and metoprolol tartrate. All: NKDA Present on Admission - Present on Admission Any Indicators Present on Admission: Yes Past Patient History - Past Medical History & Family History Past Medical History?: Yes - Past Social History Smoking Status: Former Smoker - CARDIAC Hx Hypercholesterolemia: Yes Hx Hypertension: Yes - PULMONARY Hx Respiratory Disorders: Yes Hx Chronic Obstructive Pulmonary Disease (COPD): Yes - NEUROLOGICAL Hx Neurological Disorder: No - HEENT Hx HEENT Problems: No - RENAL Hx Chronic Kidney Disease: Yes Hx Kidney Stones: Yes - ENDOCRINE/METABOLIC Hx Endocrine Disorders: No - HEMATOLOGICAL/ONCOLOGICAL Hx Blood Disorders: No - INTEGUMENTARY Hx Dermatological Problems: No - MUSCULOSKELETAL/RHEUMATOLOGICAL Hx Musculoskeletal Disorders: No Hx Falls: Yes - GASTROINTESTINAL Hx Gastrointestinal Disorders: No - GENITOURINARY/GYNECOLOGICAL Hx Genitourinary Disorders: No - PSYCHIATRIC Hx Psychophysiologic Disorder: No Hx Substance Use: No - SURGICAL HISTORY Hx Surgeries: No - ANESTHESIA Hx Anesthesia: No Hx Anesthesia Reactions: No (unknown) Hx Malignant Hyperthermia: No Meds Allergies/Adverse Reactions: Allergies Allergy/AdvReac Type Severity Reaction Status Date / Time No Known Allergies Allergy Verified 12/21/18 14:50 Physical Exam - Constitutional Appears: Well, Non-toxic - Head Exam Head Exam: ATRAUMATIC, NORMAL INSPECTION, NORMOCEPHALIC - Eye Exam Eye Exam: EOMI, Normal appearance - ENT Exam ENT Exam: Mucous Membranes Dry Additional comments: patient without his dentures - Neck Exam Neck exam: Positive for: Normal Inspection - Respiratory Exam Respiratory Exam: Clear to Auscultation Bilateral, NORMAL BREATHING PATTERN - Cardiovascular Exam Cardiovascular Exam: REGULAR RHYTHM - GI/Abdominal Exam GI & Abdominal Exam: Normal Bowel Sounds, Soft - Extremities Exam Extremities exam: Positive for: normal capillary refill, normal inspection. Negative for: calf tenderness, pedal edema, tenderness - Neurological Exam Neurological exam: Alert (patient only oriented to self. Patient knows name, , 's name. Patient said "the year is October" and cannot recall the correct year or month.) - Psychiatric Exam Psychiatric exam: Normal Affect, Normal Mood - Skin Skin Exam: Dry, Intact, Normal Color, Warm Results - Vital Signs Recent Vital Signs: Last Vital Signs Temp 98.2 F 12/21/18 14:51 Pulse 57 L 12/21/18 14:51 Resp 18 12/21/18 14:51 BP 207/85 H 12/21/18 14:51 Pulse Ox 100 12/21/18 14:51 - Labs Result Diagrams: 12/21/18 15:54 12/21/18 15:54 Labs: Laboratory Results - last 24 hr 12/21/18 12/21/18 12/21/18 15:54 15:54 15:54 WBC 7.3 RBC 5.64 Hgb 16.6 D Hct 51.0 MCV 90.5 MCH 29.5 MCHC 32.6 L RDW 14.5 Plt Count 187 D MPV 8.8 Neut % (Auto) 81.8 H Lymph % (Auto) 10.1 L [place] % (Auto) 6.4 Eos % (Auto) 1.1 Baso % (Auto) 0.6 Neut # (Auto) 6.0 Lymph # (Auto) 0.7 L [place] # (Auto) 0.5 Eos # (Auto) 0.1 Baso # (Auto) 0.0 PT 11.1 INR 1.0 APTT 33 Sodium 140 Potassium 4.3 Chloride 102 Carbon Dioxide 31 H Anion Gap 11 BUN 20 Creatinine 0.7 L Est GFR ( Amer) > 60 Est GFR (Non-Af Amer) > 60 Random Glucose 98 Calcium 8.9 Total Bilirubin 0.8 AST 39 ALT 28 Alkaline Phosphatase 93 Troponin I < 0.0120 NT-Pro-B Natriuret Pep 302 Total Protein 7.2 Albumin 4.5 Globulin 2.7 Albumin/Globulin Ratio 1.6 Assessment & Plan - Assessment and Plan (Free Text) Assessment: 78 y/o male with PMHx of HTN presents w/ chest pain. chest pain r/o ACS -s/p ASA 325mg x 1 in the ED -trops x 3 pending and serial EKGs pending, first are negative (pending 9pm, 3am) -EKG 12/21: sinus bradycardia at 58 bpm, no ST changes -lipid panel, A1c -continue with home meds crestor 5 mg and ASA 81 mg daily -cardiology consult: Dr. Castellon, recs appreciated HTN -max on admission 207/85 -> s/p 100 mg cozaar PO in the ED -continue with home meds cozaar 100 mg and metoprolol succinate 50 mg daily -monitor VS closely COPD -per medical records but patient denies -s/p duonebs x 1 in the ED -maintain spO2 > 92%, patient on RA w/o issues case d/w Dr. Hilary Chung PGY1
[2018-12-21] MEDS ORDERED: Albuterol-Ipratrop 3 mg / 0.5 (3 ml) UD ONE (17:13)
--- NOTE | 2018-12-21 18:51 | C.PDOC ---
History Of Present Illness 78 y/o male,w/PMhx of HTN and hypercholesterolemia, brought to ER by ambulance for evaluation of dizziness which has been present for the past few days.Patient states that he has left sided chest pain. Denies having syncope, fever, chills, nausea, and vomiting. Chief Complaint (Nursing): Chest Pain History Per: Patient History/Exam Limitations: no limitations Onset/Duration Of Symptoms: Days Current Symptoms Are (Timing): Still Present Past Medical History Reviewed: Historical Data, Nursing Documentation, Vital Signs Vital Signs: Last Vital Signs Temp 97.2 F L 12/21/18 17:22 Pulse 69 12/21/18 18:39 Resp 18 12/21/18 17:22 BP 170/86 H 12/21/18 18:39 Pulse Ox 100 12/21/18 17:22 - Medical History PMH: COPD, HTN, Hypercholesterolemia, Kidney Stones, Chronic Kidney Disease Surgical History: No Surg Hx - [facility] Procedures ASSISTANCE WITH RESPIRATORY VENTILATION, 24-96 HRS, CPAP (03/21/18) ULTRASONOGRAPHY OF PERICARDIUM (08/29/15) Family History: States: No Known Family Hx - Social History Hx Tobacco Use: Yes Hx Alcohol Use: No Hx Substance Use: No - Immunization History Hx Tetanus Toxoid Vaccination: No Hx Influenza Vaccination: No Hx Pneumococcal Vaccination: No Review Of Systems Except As Marked, All Systems Reviewed And Found Negative. Constitutional: Negative for: Fever, Chills Cardiovascular: Positive for: Chest Pain Respiratory: Negative for: Cough Gastrointestinal: Negative for: Nausea, Vomiting Neurological: Positive for: Dizziness Physical Exam - Physical Exam Appears: Non-toxic, No Acute Distress Skin: Normal Color, Warm, Dry Head: Atraumatic, Normacephalic Eye(s): bilateral: Normal Inspection Nose: Normal Oral Mucosa: Moist Teeth: Edentulous Neck: Supple Chest: Symmetrical Cardiovascular: Rhythm Regular Respiratory: Normal Breath Sounds, No Rales, No Rhonchi, No Wheezing Gastrointestinal/Abdominal: Soft, No Tenderness, No Guarding, No Rebound Neurological/Psych: Oriented x3, Normal Speech, Normal Motor, Normal Sensation ED Course And Treatment - Laboratory Results Result Diagrams: 12/21/18 15:54 12/21/18 15:54 Lab Results: PT 11.1 SECONDS (9.7-12.2) 12/21/18 15:54 INR 1.0 12/21/18 15:54 APTT 33 SECONDS (21-34) 12/21/18 15:54 Troponin I < 0.0120 ng/mL (0.00-0.120) 12/21/18 15:54 NT-Pro-B Natriuret Pep 302 pg/mL (0-900) 12/21/18 15:54 Total Bilirubin 0.8 mg/dL (0.2-1.3) 12/21/18 15:54 AST 39 U/L (17-59) 12/21/18 15:54 ALT 28 U/L (21-72) 12/21/18 15:54 Alkaline Phosphatase 93 U/L (38-126) 12/21/18 15:54 Total Protein 7.2 g/dL (6.3-8.3) 12/21/18 15:54 Albumin 4.5 g/dL (3.5-5.0) 12/21/18 15:54 Globulin 2.7 gm/dL (2.2-3.9) 12/21/18 15:54 Albumin/Globulin Ratio 1.6 (1.0-2.1) 12/21/18 15:54 O2 Sat by Pulse Oximetry: 100 (RA) Pulse Ox Interpretation: Normal Medical Decision Making Medical Decision Making: Plan: --Labs --EKG --CXR --Aspirin PO --Albuterol Updates: 16:45 Case discussed with and medical insurance claims processor. Patient will be admitted. Disposition - Disposition Disposition: HOSPITALIZED - Scribe Statement The provider has reviewed the documentation as recorded by the Hussain Lee Provider Attestation: All medical record entries made by the Yosefibyobani were at my direction and personally dictated by me. I have reviewed the chart and agree that the record accurately reflects my personal performance of the history, physical exam, medical decision making, and the department course for this patient. I have also personally directed, reviewed, and agree with the discharge instructions and disposition.
[2018-12-21] MEDS ORDERED: Sodium Chloride 0.9% 1,000 ML IV SCH (19:00)
[2018-12-21 19:54] VITALS: RESP 20
[2018-12-21] MEDS ORDERED: Labetalol 5mg/ml (4ml) IVP ONE (20:23)
[2018-12-21 21:52] LABS: HDL CHOLESTEROL 60 mg/dL (30-70)
[2018-12-21 22:02] LABS: LDL CHOLESTEROL 150 mg/dL (0-129)
[2018-12-21 22:04] LABS: CK-MB 1.47 ng/mL (0.0-3.38)
[2018-12-22 03:54] LABS: BASO % 0.6 % (0.0-2.0); EOS # 0.1 K/uL (0.0-0.7); EOS % 1.5 % (0.0-4.0); HEMOGLOBIN 15.3 g/dL (12.0-18.0); LYMPH # 1.3 K/uL (1.0-4.3); LYMPH % 16.4 % (20.0-40.0); MEAN CORPUSCULAR HEMOGLOBIN 29.6 pg (27.0-31.0); MEAN CORPUSCULAR HGB CONC 32.5 g/dL (33.0-37.0); MEAN PLATELET VOLUME 9.1 fL (7.2-11.7); MONO # 0.7 K/uL (0.0-0.8); MONO % 9.1 % (0.0-10.0); NEUT # 5.7 K/uL (1.8-7.0); NEUT % 72.4 % (50.0-75.0); RBC 5.17 Mil/uL (4.40-5.90); RED CELL DISTRIBUTION WIDTH 14.3 % (11.5-14.5); WHITE BLOOD COUNT 7.8 K/uL (4.8-10.8)
[2018-12-22 05:22] LABS: ALB/GLOB RATIO 1.6 (1.0-2.1); ALBUMIN 4.2 g/dL (3.5-5.0); ALT/SGPT 24 U/L (21-72); AST/SGOT 33 U/L (17-59); BLOOD UREA NITROGEN 20 mg/dL (9-20); CALCIUM 8.7 mg/dl (8.6-10.4); GFR NON-AFRICAN AMERICAN > 60
[2018-12-22] MEDS ORDERED: Metoprolol Succinate 50 mg XL Tab PO SCH (10:00)
[2018-12-22] MEDS ORDERED: Potassium Chloride 20 mEq ER Tab PO SCH (10:00)
[2018-12-22 10:49] VITALS: PULSE 72
--- NOTE | 2018-12-22 11:28 | CARD ---
APPROVED REPORT Date of service: 12/21/2018 EKG Measurement Heart [id number] <Conclusion> Sinus bradycardia Left axis deviation Moderate voltage criteria for LVH, may be normal variant Abnormal ECG
--- NOTE | 2018-12-22 11:28 | CARD ---
APPROVED REPORT Date of service: 12/21/2018 EKG Measurement Heart [id number] <Conclusion> Sinus bradycardia with 1st degree AV block Left axis deviation Moderate voltage criteria for LVH, may be normal variant Abnormal ECG
--- NOTE | 2018-12-22 11:43 | CP.PCM.DIS ---
Provider - Provider Date of Admission: 12/21/18 16:57 Attending physician: Partha Richard Jr, MD Primary care physician: Dr. Richard Consults: 12/21/18 18:52 Cardiology Consult Stat Comment: Consulting Provider: Jd Castellon Consulting Physician: Jd Castellon Reason for Consult: chest pain r/o ACS Time Spent in preparation of Discharge (in minutes): 29 Diagnosis - Discharge Diagnosis (1) Chest pain, rule out acute myocardial infarction Status: Acute Comment: Resolved, workup negative Hospital Course - Lab Results Lab Results: Most Recent Lab Values WBC 7.8 K/uL (4.8-10.8) 12/22/18 03:48 RBC 5.17 Mil/uL (4.40-5.90) 12/22/18 03:48 Hgb 15.3 g/dL (12.0-18.0) 12/22/18 03:48 Hct 47.0 % (35.0-51.0) 12/22/18 03:48 MCV 91.0 fL (80.0-94.0) 12/22/18 03:48 MCH 29.6 pg (27.0-31.0) 12/22/18 03:48 MCHC 32.5 g/dL (33.0-37.0) L 12/22/18 03:48 RDW 14.3 % (11.5-14.5) 12/22/18 03:48 Plt Count 190 K/uL (130-400) 12/22/18 03:48 MPV 9.1 fL (7.2-11.7) 12/22/18 03:48 Neut % (Auto) 72.4 % (50.0-75.0) 12/22/18 03:48 Lymph % (Auto) 16.4 % (20.0-40.0) L 12/22/18 03:48 Perry % (Auto) 9.1 % (0.0-10.0) 12/22/18 03:48 Eos % (Auto) 1.5 % (0.0-4.0) 12/22/18 03:48 Baso % (Auto) 0.6 % (0.0-2.0) 12/22/18 03:48 Neut # (Auto) 5.7 K/uL (1.8-7.0) 12/22/18 03:48 Lymph # (Auto) 1.3 K/uL (1.0-4.3) 12/22/18 03:48 Perry # (Auto) 0.7 K/uL (0.0-0.8) 12/22/18 03:48 Eos # (Auto) 0.1 K/uL (0.0-0.7) 12/22/18 03:48 Baso # (Auto) 0.0 K/uL (0.0-0.2) 12/22/18 03:48 PT 11.1 SECONDS (9.7-12.2) 12/21/18 15:54 INR 1.0 12/21/18 15:54 APTT 33 SECONDS (21-34) 12/21/18 15:54 Sodium 138 mmol/L (132-148) 12/22/18 03:48 Potassium 3.2 mmol/L (3.6-5.2) L 12/22/18 03:48 Chloride 101 mmol/L (98-107) 12/22/18 03:48 Carbon Dioxide 30 mmol/L (22-30) 12/22/18 03:48 Anion Gap 11 (10-20) 12/22/18 03:48 BUN 20 mg/dL (9-20) 12/22/18 03:48 Creatinine 0.7 mg/dL (0.8-1.5) L 12/22/18 03:48 Est GFR ( Amer) > 60 12/22/18 03:48 Est GFR (Non-Af Amer) > 60 12/22/18 03:48 Random Glucose 98 mg/dL (75-110) 12/22/18 03:48 Hemoglobin A1c 5.3 % (4.2-6.5) 12/21/18 21:34 Calcium 8.7 mg/dl (8.6-10.4) 12/22/18 03:48 Phosphorus 3.1 mg/dL (2.5-4.5) 12/22/18 03:48 Magnesium 1.9 mg/dL (1.6-2.3) 12/22/18 03:48 Total Bilirubin 1.0 mg/dL (0.2-1.3) 12/22/18 03:48 AST 33 U/L (17-59) 12/22/18 03:48 ALT 24 U/L (21-72) 12/22/18 03:48 Alkaline Phosphatase 85 U/L (38-126) 12/22/18 03:48 Total Creatine Kinase 90 U/L (55-170) 12/22/18 03:48 CK-MB (Mass) 1.50 ng/mL (0.0-3.38) 12/22/18 03:48 Troponin I < 0.0120 ng/mL (0.00-0.120) 12/22/18 03:48 NT-Pro-B Natriuret Pep 302 pg/mL (0-900) 12/21/18 15:54 Total Protein 6.7 g/dL (6.3-8.3) 12/22/18 03:48 Albumin 4.2 g/dL (3.5-5.0) 12/22/18 03:48 Globulin 2.5 gm/dL (2.2-3.9) 12/22/18 03:48 Albumin/Globulin Ratio 1.6 (1.0-2.1) 12/22/18 03:48 Triglycerides 97 mg/dL (0-149) 12/21/18 21:34 Cholesterol 208 mg/dL (0-199) H 12/21/18 21:34 LDL Cholesterol Direct 150 mg/dL (0-129) H 12/21/18 21:34 HDL Cholesterol 60 mg/dL (30-70) 12/21/18 21:34 - Hospital Course Hospital Course: Patient was evaluated for complaints of chest pain, SOB. ED evaluation included CBC/CMP, cardiac enzymes, EKG. Labs were WNL, cardiac enzymes negative x3, and EKG showing sinus bradycardia w/ left axis deviation. Chest x-ray revealed ectatic aorta, biapical pleural thickening, scattered b/l reticular nodular opacities. Patient was treated with ASA 325mg, Duonebs, Cozaar and labetalol with relief of symptoms. Cardiology, Dr. Castellon consulted and echo ordered. Patient admitted to telemetry and home meds resumed. Pt was noted to be confused during admission and demanded to sign out AMA. Due to lack of capacity, pt AAO x1, family called with no answer. Pt pulled saline lock and refused medications and workup. He later calmed down and took meds and went for echo. After evaluation, it was determined pt was stable for discharge home with family, and to follow up outpatient. HPI on admission: "78 y/o male with PMHx of HTN presents to the ED with chest pain, palp, SOB, and dizziness. Patient is a poor historian and states that his and friend brought him to the ED. They were unable to be reached by the time of examination. Patient states he had a few minutes of left sided non radiating chest pain that went with SOB. Patient states he vomited once in the car on the way to the ED. After that dizziness that caused vomiting stopped. Patient feels much better after waiting in the ED to be seen." Discharge Exam - Additional Findings Additional findings: - Constitutional Appears: Well, Non-toxic - Head Exam Head Exam: ATRAUMATIC, NORMAL INSPECTION, NORMOCEPHALIC - Eye Exam Eye Exam: EOMI, Normal appearance - ENT Exam ENT Exam: Mucous Membranes Dry Additional comments: patient without his dentures - Neck Exam Neck exam: Positive for: Normal Inspection - Respiratory Exam Respiratory Exam: Clear to Auscultation Bilateral, NORMAL BREATHING PATTERN - Cardiovascular Exam Cardiovascular Exam: REGULAR RHYTHM, non bradycardic - GI/Abdominal Exam GI & Abdominal Exam: Normal Bowel Sounds, Soft - Extremities Exam Extremities exam: Positive for: normal capillary refill, normal inspection. Negative for: calf tenderness, pedal edema, tenderness - Neurological Exam Neurological exam: AAO x1 - Psychiatric Exam Psychiatric exam: Agitated - Skin Skin Exam: Dry, Intact, Normal Color, Warm Discharge Plan - Follow Up Plan Condition: STABLE Disposition: HOME/ ROUTINE Instructions: Heart Healthy Diet, Chest Pain (DC) Additional Instructions: Patient is stable for discharge home. Patient is instructed to continue with all home medications as prescribed by his primary doctor. Patient instructed follow up with his primary doctor within 1 week of discharge. Patient instructed to return to the Emergency Department with any worsening of symptoms. El paciente se encuentra estable para el sy domiciliaria. Se le indica al paciente que contine con todos los medicamentos para el hogar segn lo prescrito por [facility]. El paciente recibi instrucciones de seguimiento con [facility] dentro de la primera semana despus del sy. Paciente instruido para regresar al Departamento de Emergencias con cualquier empeoramiento de los Referrals: Partha Richard Jr., MD [Medical Doctor] - Jd Castellon MD [Staff Provider] -
[2018-12-22 12:41] VITALS: BP 148/72; TEMP 98.1; O2SAT 98
--- NOTE | 2018-12-22 15:13 | CARD ---
APPROVED REPORT Date of service: 12/22/2018 EXAM: Two-dimensional and M-mode echocardiogram with Doppler and color Doppler. Other Information Quality : GoodRhythm : INDICATION Dizziness and Vertigo Dyspnea Chest Pain Syncope COPD Palpitations RISK FACTORS Hypertension 2D DIMENSIONS IVSd1.2 (0.7-1.1cm)LVDd4.0 (3.9-5.9cm) PWd1.1 (0.7-1.1cm)LA Ujhcas54 (18-58mL) LVDs2.4 (2.5-4.0cm)FS (%) 39.3 % LVEF (%)70.3 (>50%)LVEF (Banks's)68 % M-Mode DIMENSIONS Left Atrium (MM)3.61 (2.5-4.0cm)IVSd1.17 (0.7-1.1cm) Aortic Root3.80 (2.2-3.7cm)LVDd4.33 (4.0-5.6cm) Aortic Cusp Exc.2.13 (1.5-2.0cm)PWd1.05 (0.7-1.1cm) FS (%) 37 %LVDs2.71 (2.0-3.8cm) LVEF (%)68 (>50%) Mitral Valve MV E Ymejysze64.4cm/sMV A Jzpmufmr468.5cm/sE/A ratio0.5 TDI Lateral E' Peak V3.77cm/sMedial E' Peak V3.90cm/sE/Lateral E'14.4 E/Medial E'13.9 Tricuspid Valve TR Peak Insthfcm184bf/sTR Peak Gr.2ejLeSMRA91qmCp LEFT VENTRICLE The left ventricle is normal size. There is mild concentric left ventricular hypertrophy. The Ejection Fraction is 60-65%. There is normal LV segmental wall motion. Transmitral Doppler flow pattern is Grade I-abnormal relaxation pattern. The left atrial pressure is mildly elevated. RIGHT VENTRICLE The right ventricle is normal size. The right ventricular systolic function is normal. ATRIA The left atrium size is normal. The right atrium size is normal. The interatrial septum is intact with no evidence for an atrial septal defect. AORTIC VALVE The aortic valve is normal in structure. There is mild aortic regurgitation. MITRAL VALVE The mitral valve is normal in structure. Mitral regurgitation is mild. TRICUSPID VALVE The tricuspid valve is normal in structure. There is trace tricuspid regurgitation. PULMONIC VALVE The pulmonary valve is normal in structure. There is mild pulmonic valvular regurgitation. GREAT VESSELS The aortic root is normal in size. The IVC is normal in size and collapses >50% with inspiration. PERICARDIAL EFFUSION There is no pericardial effusion. <Conclusion> The left ventricle is normal size. There is mild concentric left ventricular hypertrophy. The Ejection Fraction is 60-65%. Transmitral Doppler flow pattern is Grade I-abnormal relaxation pattern. The left atrial pressure is mildly elevated. The aortic valve is normal in structure. Mitral regurgitation is mild. The aortic root is normal in size. There is no pericardial effusion.
[2018-12-23] MEDS ORDERED: Pneumococcal 23-Valent Vaccine IM ONE (10:00)
== END 2018-12-22 12:22 | disposition home or self-care (01) | DRG 313 ==
LOC: C.ER 14:39 → C.9E 16:57 → C.6T 18:25
PROVIDERS: ADMIT Internal Medicine; ATTEND Internal Medicine
DX: R07.89 Other chest pain (principal); J44.9 Chronic obstructive pulmonary disease, unspecified; E78.00 Pure hypercholesterolemia, unspecified; I12.9 Hypertensive chronic kidney disease with stage 1 through stage 4 chronic kidney disease, or unspecified chronic kidney disease; N18.9 Chronic kidney disease, unspecified; Z79.82 Long term (current) use of aspirin; Z87.442 Personal history of urinary calculi; Z87.891 Personal history of nicotine dependence

== ENCOUNTER 2019-04-12 15:16 | Emergency (ER) | payer MEDICARE ==
[2019-04-12 15:16] VITALS: BMI 27.4
[2019-04-12 15:27] VITALS: RESP 20
--- NOTE | 2019-04-12 16:40 | C.PDOC ---
History Of Present Illness 78-year-old male presents to the ED for evaluation after sustaining a fall prior to arrival. Patient states he was walking outside when he tripped, fell and accidentally fell face-forward onto the ground. Patient states he used his hands to brace himself and reports an abrasion to his nose. Patient denies LOC, nausea, vomiting. - HPI Time Seen by Provider: 04/12/19 15:27 Chief Complaint (Nursing): Trauma History Per: Patient History/Exam Limitations: no limitations Onset/Duration Of Symptoms: Hrs Additional History Per: Patient - Fall Fall:Prior To Injury: Tripped Past Medical History Reviewed: Historical Data, Nursing Documentation, Vital Signs Vital Signs: Last Vital Signs Temp 98.2 F 04/12/19 15:18 Pulse 93 H 04/12/19 15:18 Resp 20 04/12/19 15:18 BP Pulse Ox 95 04/12/19 15:18 Primary Care Provider: Carmelo Alejo - Medical History PMH: COPD, HTN, Hypercholesterolemia, Kidney Stones, Chronic Kidney Disease Surgical History: No Surg Hx - [facility] Procedures ASSISTANCE WITH RESPIRATORY VENTILATION, 24-96 HRS, CPAP (03/21/18) ULTRASONOGRAPHY OF PERICARDIUM (08/29/15) Family History: States: Unknown Family Hx - Social History Hx Tobacco Use: Yes Hx Alcohol Use: No Hx Substance Use: No - Immunization History Hx Tetanus Toxoid Vaccination: No Hx Influenza Vaccination: No Hx Pneumococcal Vaccination: No Review Of Systems Gastrointestinal: Negative for: Nausea, Vomiting Skin: Positive for: Other (abrasion to nose s/p fall ) Neurological: Negative for: Other (LOC ) Physical Exam - Physical Exam Appears: Non-toxic, No Acute Distress Skin: Normal Color, Warm, Dry, Other (abrasion to the paulson aspect of right hand and right knee. no active bleeding ) Head: Atraumatic, Normacephalic Eye(s): bilateral: Normal Inspection Nose: Other (abrasion to nose. no active bleeding ) Oral Mucosa: Moist Neck: Supple Chest: Symmetrical, No Deformity, No Tenderness Cardiovascular: Rhythm Regular, No Murmur Respiratory: Normal Breath Sounds, No Rales, No Rhonchi, No Wheezing Extremity: Normal ROM, Capillary Refill (less than 2 seconds ) Neurological/Psych: Oriented x3, Normal Speech, Normal Cognition ED Course And Treatment O2 Sat by Pulse Oximetry: 95 (on RA) Pulse Ox Interpretation: Normal - Other Rad right knee XR X-Ray: Viewed By Me, Read By Radiologist Interpretation: Date of service: 04/12/2019. PROCEDURE: Right Knee Radiographs. HISTORY: trauma. COMPARISON: None. TECHNIQUE: 2 views obtained. FINDINGS: BONES: No acute fracture or destructive bony lesion identified, including the patella. JOINTS: No subluxation or dislocation. Degenerative soft tissue calcification is seen in the medial lateral joint spaces with vascular calcifications posteriorly. JOINT EFFUSION: None. OTHER FINDINGS: None. IMPRESSION: No acute fracture or dislocation right knee with patella, distal femur and proximal tibia/fibula intact. hand XR X-Ray: Viewed By Me, Read By Radiologist Interpretation: PROCEDURE: Right Hand Radiographs. HISTORY: trauma. COMPARISON: None. TECHNIQUE: 3 views obtained. FINDINGS: BONES: No acute fracture or destructive bony lesion identified. JOINTS: No subluxation or dislocation throughout the right hand. However, joint space narrowing and osteophyte development are seen throughout the interphalangeal joints diffusely as well as articular cortical sclerosis with similar changes at the metatarsophalangeal, carpal metacarpal and carpal carpal articulations compatible with diffuse osteoarthritis. SOFT TISSUES: Normal. OTHER FINDINGS: None. IMPRESSION: Diffuse osteoarthritis appear relatively advanced, particularly throughout the interphalangeal joints of the right hand. No acute fracture or dislocation. - CT Scan/US CT Maxillofacial Other Rad Studies (CT/US): Read By Radiologist, Radiology Report Reviewed CT/US Interpretation: Date of service: 04/12/2019. PROCEDURE: CT MAXILLOFACIAL BONES WITHOUT CONTRAST. HISTORY: trauma. COMPARISON: None available. TECHNIQUE: Contiguous axial CT images of the maxillofacial bones were obtained. Coronal and sagittal reformats were generated. Radiation dose: Total exam DLP = 792.23 mGy-cm. This CT exam was performed using one or more of the following dose reduction techniques: Automated exposure control, adjustment of the mA and/or kV according to patient size, and/or use of iterative reconstruction technique. FINDINGS: NASAL BONES: Unremarkable. ORBITS: Unremarkable. PARANASAL SINUSES/ MASTOIDS: Chronic right maxillary sinusitis identified. Thickening of the bone the right but rather than left maxillary sinus felt to be sinusitis related may reflect other primary bony process such as limited Paget's disease or even fibrous dysplasia. This appears to date back many years including in prior head CT 08/28/2015. MAXILLA: As above. No acute fracture identified. MANDIBLE/ TEMPOROMANDIBULAR JOINTS: Unremarkable. SKULL BASE: Unremarkable. TEMPORAL BONES: Middle ears and mastoid grossly unremarkable. OTHER FINDINGS: None. IMPRESSION: No facial bone fracture identified. Chronic thickening of the right greater than left maxillary sinus walker appreciated, likely on the basis chronic sinusitis. No prominent suspicious soft tissue findings. CT Head Other Rad Studies (CT/US): Read By Radiologist, Radiology Report Reviewed CT/US Interpretation: Date of service: 04/12/2019. PROCEDURE: CT HEAD WITHOUT CONTRAST. HISTORY: trauma. COMPARISON: None available. TECHNIQUE: Axial computed tomography images were obtained through the head/brain without intravenous contrast. Radiation dose: Total exam DLP = 1098.87 mGy-cm. This CT exam was performed using one or more of the following dose reduction techniques: Automated exposure control, adjustment of the mA and/or kV according to patient size, and/or use of iterative reconstruction technique. FINDINGS: HEMORRHAGE: No intracranial hemorrhage. BRAIN: Good corticomedullary differentiation is seen. Reiterated diffuse cerebral atrophy and chronic microangiopathy. No suspicious extra-axial fluid collection is identified and the midline brain anatomy appears grossly nonfocal as imaged. No mass effect identified. VENTRICLES: Unremarkable. No hydrocephalus. CALVARIUM: No destructive bony lesion or displaced fracture identified including through the skullbase. Mild cavernous ICA partially calcified atherosclerosis bilaterally noted once again. PARANASAL SINUSES: Unremarkable as visualized. No significant inflammatory changes. MASTOID AIR CELLS: Unremarkable as visuali zed. No inflammatory changes. OTHER FINDINGS: None. IMPRESSION: Stable age- related degenerative changes are appreciate without definitive acute intracranial findings by standard CT criteria. Progress Note: CT Head, CT Maxillofacial, Right hand XR, Right knee XR ordered and reviewed. Wound cleaned with NSS. Dermabond applied to nasal bridge with steri strips. ambulating with steady gait Reassessment Condition: Improved Laceration - Laceration Repair No standard instances Wound Length (In cm): 1 cm Description Of Wound: Linear Wound Cleansed With: Sterile Saline Wound Closure: Skin Glue Wound Complexity: Simple Disposition - Disposition Referrals: [facility] [Outside] [facility] [Outside] Disposition: HOME/ ROUTINE Disposition Time: 17:45 Condition: STABLE Additional Instructions: Follow up with your PMD for further evaluation Ice to affected areas Instructions: Skin Abrasions, Contusion (DC), Minor Head Injury (DC) Forms: [facility] (Ukrainian) - POA Present On Arrival: None - Clinical Impression Clinical Impression: Abrasion head, Contusion, Head injury - PA / INCLUSION SPECIALIST / Resident Statement MD/DO has reviewed & agrees with the documentation as recorded. - Scribe Statement The provider has reviewed the documentation as recorded by the Scribe (Indira Candelario) All medical record entries made by the Scribe were at my direction and personally dictated by me. I have reviewed the chart and agree that the record accurately reflects my personal performance of the history, physical exam, medical decision making, and the department course for this patient. I have also personally directed, reviewed, and agree with the discharge instructions and disposition.
--- NOTE | 2019-04-12 16:50 | CT ---
Date of service: 04/12/2019 PROCEDURE: CT HEAD WITHOUT CONTRAST. HISTORY: trauma COMPARISON: None available. TECHNIQUE: Axial computed tomography images were obtained through the head/brain without intravenous contrast. Radiation dose: Total exam DLP = 1098.87 mGy-cm. This CT exam was performed using one or more of the following dose reduction techniques: Automated exposure control, adjustment of the mA and/or kV according to patient size, and/or use of iterative reconstruction technique. FINDINGS: HEMORRHAGE: No intracranial hemorrhage. BRAIN: Good corticomedullary differentiation is seen. Reiterated diffuse cerebral atrophy and chronic microangiopathy. No suspicious extra-axial fluid collection is identified and the midline brain anatomy appears grossly nonfocal as imaged. No mass effect identified. VENTRICLES: Unremarkable. No hydrocephalus. CALVARIUM: No destructive bony lesion or displaced fracture identified including through the skullbase. Mild cavernous ICA partially calcified atherosclerosis bilaterally noted once again. PARANASAL SINUSES: Unremarkable as visualized. No significant inflammatory changes. MASTOID AIR CELLS: Unremarkable as visualized. No inflammatory changes. OTHER FINDINGS: None. IMPRESSION: Stable age-related degenerative changes are appreciate without definitive acute intracranial findings by standard CT criteria.
--- NOTE | 2019-04-12 16:56 | CT ---
Date of service: 04/12/2019 PROCEDURE: CT MAXILLOFACIAL BONES WITHOUT CONTRAST HISTORY: trauma COMPARISON: None available. TECHNIQUE: Contiguous axial CT images of the maxillofacial bones were obtained. Coronal and sagittal reformats were generated. Radiation dose: Total exam DLP = 792.23 mGy-cm. This CT exam was performed using one or more of the following dose reduction techniques: Automated exposure control, adjustment of the mA and/or kV according to patient size, and/or use of iterative reconstruction technique. FINDINGS: NASAL BONES: Unremarkable. ORBITS: Unremarkable. PARANASAL SINUSES/ MASTOIDS: Chronic right maxillary sinusitis identified. Thickening of the bone the right but rather than left maxillary sinus felt to be sinusitis related may reflect other primary bony process such as limited Paget's disease or even fibrous dysplasia. This appears to date back many years including in prior head CT 08/28/2015. MAXILLA: As above. No acute fracture identified. MANDIBLE/ TEMPOROMANDIBULAR JOINTS: Unremarkable. SKULL BASE: Unremarkable. TEMPORAL BONES: Middle ears and mastoid grossly unremarkable. OTHER FINDINGS: None. IMPRESSION: No facial bone fracture identified. Chronic thickening of the right greater than left maxillary sinus walker appreciated, likely on the basis chronic sinusitis. No prominent suspicious soft tissue findings.
--- NOTE | 2019-04-12 17:03 | RAD ---
Date of service: 04/12/2019 PROCEDURE: Right Knee Radiographs. HISTORY: trauma COMPARISON: None. TECHNIQUE: 2 views obtained. FINDINGS: BONES: No acute fracture or destructive bony lesion identified, including the patella. JOINTS: No subluxation or dislocation. Degenerative soft tissue calcification is seen in the medial lateral joint spaces with vascular calcifications posteriorly. JOINT EFFUSION: None. OTHER FINDINGS: None. IMPRESSION: No acute fracture or dislocation right knee with patella, distal femur and proximal tibia/fibula intact.
--- NOTE | 2019-04-12 17:04 | RAD ---
PROCEDURE: Right Hand Radiographs. HISTORY: trauma COMPARISON: None. TECHNIQUE: 3 views obtained. FINDINGS: BONES: No acute fracture or destructive bony lesion identified. JOINTS: No subluxation or dislocation throughout the right hand. However, joint space narrowing and osteophyte development are seen throughout the interphalangeal joints diffusely as well as articular cortical sclerosis with similar changes at the metatarsophalangeal, carpal metacarpal and carpal carpal articulations compatible with diffuse osteoarthritis. SOFT TISSUES: Normal. OTHER FINDINGS: None. IMPRESSION: Diffuse osteoarthritis appear relatively advanced, particularly throughout the interphalangeal joints of the right hand. No acute fracture or dislocation.
[2019-04-12 17:12] VITALS: BP 161/74; PULSE 72; TEMP 98.4
[2019-04-12] MEDS ORDERED: Silver Nitrate Topical - Stick ONE (17:33)
[2019-04-12 17:38] VITALS: O2SAT 95
== END 2019-04-12 17:58 | disposition home or self-care (01) ==
LOC: C.ER 15:16
DX: S09.90XA Unspecified injury of head, initial encounter (principal); S00.31XA Abrasion of nose, initial encounter; W01.0XXA Fall on same level from slipping, tripping and stumbling without subsequent striking against object, initial encounter; I12.9 Hypertensive chronic kidney disease with stage 1 through stage 4 chronic kidney disease, or unspecified chronic kidney disease; N18.9 Chronic kidney disease, unspecified; E78.00 Pure hypercholesterolemia, unspecified; J44.9 Chronic obstructive pulmonary disease, unspecified; Z72.0 Tobacco use